=== PATIENT | female | born 1975 | race Caucasian/White ===

== ENCOUNTER → 2018-01-29 14:15 | Outpatient (CLI) | payer OTHER, SELFPAY ==
--- NOTE | 2018-01-29 14:17 | DI.US.S_ITS ---
PROCEDURE: US PELVIC COMPLETE INDICATIONS: PAIN, BLEEDING SINCE IUD INSERTION TECHNIQUE: Real-time scanning was performed of the pelvic organs, with image documentation. Additional endovaginal scanning was necessary due to incomplete visualization of the adnexal and endometrial structures by transabdominal scanning. COMPARISON: [facility], US, PELVIC COMPLETE, 10/11/2017, 10:23. FINDINGS: Transabdominal scanning: Limited scanning through the kidneys shows no hydronephrosis. No pathologic free abdominal or pelvic fluid. Endovaginal scanning: Uterus: Uterus is normal in size at 8.2 x 4.6 x 5.6 cm. The endometrium measures 5 mm in combined thickness. An intrauterine contraceptive device is appropriately positioned within the endometrial cavity. There is a 15 mm intramural fibroid identified along the anterior margin of the uterus to the right of midline. A 27 mm intradural fibroid is identified on the posterior aspect of the uterus to the left of midline. A 15 mm submucosal fibroid is identified along the mid aspect of the uterus, which may exert mass effect on the endometrium. Ovaries: The right ovary measures 2.8 x 1 point by 2.0 cm. Left ovary measures 3.1 x 2.1 cm. Both ovaries are normal in size without cystic or solid abnormality. IMPRESSION: 1. Small to moderate-sized uterine fibroids. 2. Intrauterine contraceptive device is appropriately positioned. 2. Unremarkable ovaries. Dictated by: Jean-Claude Briones M.D. on 01/29/2018 at 14:40 Approved by: Jean-Claude Briones M.D. on 01/29/2018 at 14:45
== END ==
PROVIDERS: PCP Family Medicine; Visit Provider Specialist
DX: D25.9 Leiomyoma of uterus, unspecified (principal); N92.1 Excessive and frequent menstruation with irregular cycle; Z30.431 Encounter for routine checking of intrauterine contraceptive device
CPT/HCPCS: 76830; 76856

== ENCOUNTER → 2018-03-17 12:28 | Outpatient (CLI) | payer OTHER, SELFPAY ==
[2018-03-17 12:47] LABS: Add Manual Diff / Slide Review NO; Basophils Percent Auto 0.6 % (0-2); Eosinophils Percent Auto 4.6 % (2-4); Hematocrit 39.3 % (36-46); Hemoglobin 13.4 g/dL (12.0-16.0); Mean Corpuscular Hemoglobin 30.7 PG (26-34); Mean Corpuscular Volume 90.1 fL (80-100); Monocytes Percent Auto 8.6 % (3-14); Neutrophils Absolute Auto 4700 /uL (3000-5900); Neutrophils Percent Auto 56.2 % (50-75); Platelet Count 340 X10^3/uL (150-400); Red Blood Cell Count 4.36 X10^6/uL (4.0-5.2); Red Cell Distribution Width 13.6 % (11.6-14.8); White Blood Cell Count 8.4 X10^3/uL (4.5-11.0)
== END ==
PROVIDERS: PCP Family Medicine; Visit Provider Specialist
DX: N92.0 Excessive and frequent menstruation with regular cycle (principal)
CPT/HCPCS: 36415; 85025

== ENCOUNTER 2018-03-24 11:43 | Day surgery (SDC) | payer OTHER, SELFPAY ==
[2018-03-17 13:43] VITALS: BMI 31.1
[2018-03-24] VITALS (14 sets, daily range): BP systolic 115–163; BP diastolic 71–115; PULSE 70–89; RESP 14–20; TEMP 36.3–36.9; O2SAT 93–100; BMI 29.0
--- NOTE | 2018-03-24 12:16 | SUR.PREOP ---
Reported pt's elevated BP to Dr. Thomason. He said he would come see the pt, no intervention at this time.
--- NOTE | 2018-03-24 12:39 | PM.PREOP ---
Pre-operative Note Interval Note Pre-op Check: History & Physical Reviewed by Physician and Exam Performed
[2018-03-24] MEDS: LACTATED RINGERS 1,000 ML 42 ML IV (13:00)
[2018-03-24] MEDS: CEFAZOLIN 2 GM/100 ML FROZ.PIGGY IV (13:28)
[2018-03-24] MEDS: BUPIVACAINE 0.5% W/ EPI (PF) 30 ML VIAL INJ (14:12)
--- NOTE | 2018-03-24 15:04 | PM.OP.1 ---
Operative Date/Time/Diagnoses Date of procedure: 03/24/18 Time of procedure: 15:05 Pre-op diagnosis: Menorrhagia with submucous fibroid Post-op diagnosis: same Procedure & Clinicians Procedure: Laparoscopic supracervical hysterectomy with bilateral salpingectomies Same procedure as scheduled: Yes Indications: Menorrhagia with submucous fibroid unrelieved by Mirena IUD and control pills. Surgeon: Anastasiya Clement Pi/Senior Research Associate: Meche Wright Anesthesia Type: General Operative Notes Findings: Normal tubes, ovaries, and fibroid uterus. Normal liver edge and bowel surface. No endometriosis or scar tissue. Closure Type: primary Specimen(s): other (Uterus above the level the bladder and fallopian tubes) Estimated Blood Loss (mL): 50 Blood products transfused: none Procedure in detail: Patient is brought to the operating room where she underwent general anesthesia and placed in low yellowfin stirrups. She was prepped and draped in the usual sterile fashion. A check list was reviewed with the staff in the room prior to beginning of the case. Patient had pulsatile stockings in place and functional. 2 g of Ancef were in prior to beginning of the case.. A Anglin catheter was placed. A single-tooth tenaculum was placed on the anterior lip of the cervix and the cervix dilated to a #6 Hegar dilator. The uterine manipulator was placed through the cervix into the uterus with the balloon inflated with 3 mL of air. The area of the umbilical incision and the 5 mm right and left lower quadrant incisions were injected with Marcaine. An incision was made with scalpel. The verries needle was placed into the abdomen and confirmed in the appropriate place with withdrawal on a syringe and then free flow of fluid down through the needle. The abdomen was insufflated with CO2. The needle was removed and a 5 mm trocar placed without difficulty. There did not appear to be any damage is placement of the trocar. The right and left lower quadrant incisions were made with the scalpel and the trochars placed without damage to internal structures. The PK forceps were used to cauterize the mesosalpinx followed by the round ligaments on both sides. The utero-ovarian ligaments were cauterized and cut. Sequential bites were taken down the broad ligaments. The uterine arteries were cauterized. An incision was made above the level bladder pushing the bladder away from the cervix. The ROGELIO loop was placed around the uterus and the uterus was amputated above the level of the bladder. Bleeding was controlled with the PK forceps. The PK forceps were used to cauterize in the endocervical canal. A supracervical incision was made and an 11 mm port placed. A 15 mm Endo Catch bag was placed in the abdomen. The uterus, tubes and ovaries were placed in the bag and brought up through the suprapubic port site. The Logan O was placed. The uterus was hand morselized. The abdomen was reinsufflated and adequate hemostasis was noted. The trochars were removed and the CO2 allowed escape from the abdomen. The fascia layer of the suprapubic site was repaired with 0 Polysorb suture. Skin was closed with 4-0 Monocryl suture at the suprapubic site and the other 3 sites. The patient went to recovery room in good condition. Counts of instruments and sponges were correct. Complications: none Condition: stable Disposition: observation Plan for aftercare: Patient will be admitted as outpatient with bed due to preoperative hypertension.
[2018-03-24] MEDS: HYDROMORPHONE 1 MG INJ 0.5 MG IV (15:10)
[2018-03-24] MEDS: LACTATED RINGERS 1,000 ML 100 ML IV (16:39)
[2018-03-24] MEDS: OXYCODONE/ACETAMINOPHEN 5/325 TABLET 2 TAB PO ×2 (16:43→20:40)
[2018-03-24] MEDS: hydroCHLOROthiazide 25 MG TABLET PO (17:39)
[2018-03-24] MEDS: LOSARTAN 50 MG TABLET PO (20:39)
[2018-03-24] MEDS: KETOROLAC 30 MG/ML VIAL IV (21:48)
--- NOTE | 2018-03-24 22:21 | PC.ADMIT ---
446 [facility] Admission Note: The patient,Beatriz Mayfield,42 y/o, was given written information regarding hospital policies, unit procedures and contact persons. Patient's smoking status: Never smoker. Vital Signs - 8 hr 03/24/18 14:50 03/24/18 14:55 03/24/18 15:00 Temperature 98 F 98 F 98 F Pulse Rate 77 83 88 Respiratory Rate 18 20 18 Blood Pressure 120/86 H 115/90 H 122/91 H Pulse Oximetry 93 96 95 03/24/18 15:15 03/24/18 15:29 03/24/18 15:45 Temperature 98 F 97.6 F 98.0 F Pulse Rate 75 77 70 Respiratory Rate 14 18 16 Blood Pressure 118/85 H 126/86 H 117/71 Pulse Oximetry 95 96 100 03/24/18 16:15 03/24/18 16:45 03/24/18 17:45 Temperature 98.4 F 98.4 F 98.2 F Pulse Rate 70 70 85 Respiratory Rate 16 16 16 Blood Pressure 117/89 H 126/90 H 130/93 H Pulse Oximetry 97 97 97 03/24/18 18:45 03/24/18 20:39 Temperature 98.1 F Pulse Rate 84 84 Respiratory Rate 16 Blood Pressure 137/86 H 137/86 H Pulse Oximetry 96 Pt arrived to Acute care floor approx at 1545. 4 Lap sites with bandaids CDI, ice pack applied to abdomen. Pt A&Ox3, calm and cooperative with care. 100% RA, denies SOB, LS clear. Pt denies nausea and numbness and tingling. Up OOB SBA. Urine clear yellow, scant bleeding present on jessica-pad. Call light in reach. Pt calling appropriately and making needs known to staff.
[2018-03-25] MEDS: OXYCODONE/ACETAMINOPHEN 5/325 TABLET 2 TAB PO ×2 (00:57→07:36)
[2018-03-25] MEDS: KETOROLAC 30 MG/ML VIAL IV (04:03)
[2018-03-25 04:14] VITALS: BP 122/86; PULSE 65; RESP 16; TEMP 36.6; O2SAT 96
[2018-03-25 06:03] LABS: Add Manual Diff / Slide Review NO; Basophils Percent Auto 0.1 % (0-2); Hematocrit 37.6 % (36-46); Hemoglobin 12.9 g/dL (12.0-16.0); Lymphocytes Percent Auto 11.1 % (25-40); Mean Corpuscular HGB Conc 34.4 % (30-36); Mean Corpuscular Hemoglobin 30.4 PG (26-34); Mean Corpuscular Volume 88.6 fL (80-100); Monocytes Percent Auto 6.5 % (3-14); Neutrophils Absolute Auto 8700 /uL (3000-5900); Neutrophils Percent Auto 82.3 % (50-75); Platelet Count 318 X10^3/uL (150-400); Red Blood Cell Count 4.25 X10^6/uL (4.0-5.2); Red Cell Distribution Width 13.1 % (11.6-14.8); White Blood Cell Count 10.6 X10^3/uL (4.5-11.0)
--- NOTE | 2018-03-25 07:13 | PM.DS.1 ---
History of Present Illness Date Patient Seen: 03/25/18 Time Patient Seen: 07:13 Chief complaint: *OPB* 26225 Narrative: Patient underwent a laparoscopic supracervical hysterectomy with bilateral salpingectomies on 03/24/2018. Patient's blood pressure preoperative was elevated despite blood pressure medication so we monitor the patient in the hospital postoperative for her blood pressure. Her blood pressures remained normotensive throughout her hospital stay. She had no problems urinating and ambulating. She was tolerating regular diet. Pain was under control. Discharge Providers Primary care physician: Alonso Garsia MD Discharge provider: Anastasiya Clement MD Summary Discharge Diagnosis: Status post laparoscopic supracervical hysterectomy for menorrhagia Hospital Course: Patient remained normotensive who postoperatively and did well. Exam Vital Signs (past 8 hours): - 03/24/18 23:20 03/25/18 04:14 Temperature 97.6 F 97.8 F Pulse Rate 84 65 Respiratory Rate 16 16 Blood Pressure 123/86 H 122/86 H Pulse Oximetry 96 96 Oxygen Delivery Method Room Air Narrative Exam Narrative: Patient's abdomen is soft, nontender. Dressings are dry. Extremities without edema, nontender. Minimal vaginal bleeding Objective Labs Result Diagrams: 03/25/18 05:46 Labs: Laboratory Results - last 24 hr 03/25/18 05:46 WBC 10.6 RBC 4.25 Hgb 12.9 Hct 37.6 MCV 88.6 MCH 30.4 MCHC 34.4 RDW 13.1 Plt Count 318 Neut % (Auto) 82.3 H Lymph % (Auto) 11.1 L Guthrie % (Auto) 6.5 Eos % (Auto) 0.0 L Baso % (Auto) 0.1 Neut # (Auto) 8700 H Discharge Plan Discharge Plan Patient Disposition: Home, Self-Care Discharge Med Rec/Prescriptions Prescriptions: New hydrochlorothiazide 25 mg Tablet 25 mg PO DAILY Qty: 30 RF: 0 Continue losartan 50 mg 50 mg PO BID RF: 0 oxycodone-acetaminophen [Percocet] 5-325 mg tablet 2 tab PO Q4H PRN (Reason: pain) Qty: 40 RF: 0 ibuprofen 600 mg Tablet 600 mg PO PRN PRN (Reason: Pain (Scale Score 1-3)) RF: 0 Follow up/Referrals: Alonso Garsia MD [Primary Care Provider] - 2 Weeks (Blood pressure management) Anastasiya Clement MD [Physician] - 1 Week (Already scheduled) Discharge Orders: Discharge (Order); Ordered 03/25/18 Ordered By: Anastasiya Clement Provider Discharge Instructions Diet: Regular Wound Care Report to your healthcare provider any signs of infection, such as:: chills, fever, increased pain and unusual drainage Dressing: May remove bandages today, okay to get Steri-Strips wet Visit Report/Discharge Packet Stand Alone Forms: Surgery Discharge Discharge Data Primary Care Provider: Alonso Garsia Attending Provider: Anastasiya Clement
[2018-03-25 07:48] VITALS: BP 135/98; PULSE 59; RESP 16; TEMP 36.6; O2SAT 99
[2018-03-25] MEDS: hydroCHLOROthiazide 25 MG TABLET PO (08:06)
[2018-03-25] MEDS: LOSARTAN 50 MG TABLET PO (08:06)
--- NOTE | 2018-03-25 08:44 | CM.DANOTE ---
Discharge Planning/Care Management CM Discharge Assessment Start: 03/25/18 08:38 Freq: Status: Active Protocol: Document 03/25/18 08:39 RL (Rec: 03/25/18 08:44 RL [id number]) Discharge Planning Assessment Assigned Tug Hand Marie Stark History Provided By Patient Has Patient been admitted in last 30 No days? Is this patient on Medicare? No Is the admit diagnosis the same? No Prior Living Arrangements Apartment/Condo Household Members family Type of transporation used prior to Drives own vehicle admit Comment mother to pick her up today Independent with ADL's Yes Is patient alert and oriented? Yes Caregiver for Another No Discharge Plan Home Transportation Arrangement mother, private car Additional Comment lives with brother and patient 's son who will be assisting her in the home. Plan to d/c home this morning, no services Review Status Complete DCP Assessment: 03/25/18 Case reviewed, EMR reviewed and met with patient who is alert and oriented, looking forward to d/c to home this morning. Pt is a 42yo female admitted as OPB for lap hysterectomy and bilat salping, under the care of Dr. Clement. PCP: Dr. Garsia Primary payor is: [employer] Other health care agencies used: None Met with patient. Introduced self as DCP, explained role and goals of DCP and as pt advocate. Pt verbalized understanding. DCP wrote name and extension number on patient whiteboard. Independent at baseline for all ADLs prior to this hospitalization. No needs at discharge. Plan: Home with family care. Mother will be here to pick her up about 11am. Marie Gaston RN
== END 2018-03-25 10:29 | disposition home or self-care (01) ==
LOC: OR 11:46 → AC 15:52
PROVIDERS: PCP Family Medicine; Visit Provider Specialist
PROC: 0UT94ZL Resection of Uterus, Supracervical, Percutaneous Endoscopic Approach (ICD-10-PCS; CPT 58542; principal; 2018-03-24 13:00)
DX: D25.0 Submucous leiomyoma of uterus (principal)
CPT/HCPCS: 58542; 36415; 85025; J0690; J1100; J1170; J1885; J2250; J2405; J2704; J3010

== ENCOUNTER → 2020-06-03 08:13 | Outpatient (CLI) | payer OTHER, SELFPAY ==
[2018-03-24 17:27] VITALS: BMI 29.0
[2020-06-05 15:27] LABS: COVID19 Sendout Not Detected (Not Detect)
== END ==
PROVIDERS: PCP Family Medicine; Visit Provider Physician Assistant
DX: Z11.59 Encounter for screening for other viral diseases (principal)
CPT/HCPCS: 87635

== ENCOUNTER 2020-06-06 13:59 | Day surgery (SDC) | payer OTHER, SELFPAY ==
[2018-03-24 17:27] VITALS: BMI 29.0
--- NOTE | 2020-06-06 | PATH_ITS ---
[facility] Accession Number: [id number] . 01 Material submitted: . PART A: cecum - CECUM BIOPSY PART B: colon - ASCENDING BIOPSY PART C: colon - TRANSVERSE BIOPSY PART D: colon - DESCENDING BIOPSY PART E: sigmoid colon - SIGMOID BIOPSY PART F: rectum - RECTUM . 01 Clinical history: . SDC . 02 Diagnosis: A-C. Cecum, Ascending, Transverse Colon, Biopsies: Mildly active colitis with minimally increased lymphocytes, plasma cells and eosinophils in the lamina propria. Please see comment. Negative for granulomas, dysplasia, and malignancy. . D. Descending Colon, Biopsy: Colonic mucosa with no significant diagnostic abnormality. Negative for active inflammation, granulomas, dysplasia, and malignancy. . E. Sigmoid Colon, Biopsy: Minimally active colitis with minimally increased lymphocytes, plasma cells and eosinophils in the lamina propria. Please see comment. . F. Rectum, Biopsy: Mildly active colitis with mild distortion of the crypt architecture. Please see comment. [facility] 06/09/2020 1635 Local . 02 Comment: There is patchy mild neutrophilic cryptitis in most of the colon biopsies. There is minimally increased lymphocytes, plasma cells and eosinophils in all of the pieces, which is slightly more prominent in the rectal biopsies, suggestive of chronic inflammation. There is rare branched crypt architecture in the sigmoid colon and rectum. No obvious viral cytopathic effects or parasitic organisms are identified. The morphologic appearance raises the consideration of idiopathic inflammatory bowel disease in the appropriate clinical setting, if infection and medication related mucosal injury are excluded. . 02 Electronically signed: . Latanya Paula MD, Pathologist NPI- [id number] . 01 Gross description: . Part A: CECUM BIOPSY: Received in formalin are 2 fragment(s) of alberto, soft tissue measuring 0.1 x 0.1 x 0.1 cm to 0.3 x 0.2 x 0.2 cm submitted entirely in 1 cassette(s) Part B: ASCENDING BIOPSY: Received in formalin are 2 fragment(s) of alberto, soft tissue measuring 0.1 x 0.1 x 0.1 cm to 0.2 x 0.2 x 0.2 cm submitted entirely in 1 cassette(s) Part C: TRANSVERSE BIOPSY: Received in formalin are 2 fragment(s) of alberto, soft tissue measuring 0.1 x 0.1 x 0.1 cm to 0.3 x 0.1 x 0.1 cm submitted entirely in 1 cassette(s) Part D: DESCENDING BIOPSY: Received in formalin is 1 fragment(s) of alberto, soft tissue measuring 0.2 x 0.2 x 0.2 cm submitted entirely in 1 cassette(s) Part E: SIGMOID BIOPSY: Received in formalin are 2 fragment(s) of alberto, soft tissue measuring 0.2 x 0.2 x 0.1 cm to 0.3 x 0.2 x 0.2 cm submitted entirely in 1 cassette(s) Part F: RECTUM: Received in formalin are 2 fragment(s) of alberto, soft tissue measuring 0.1 x 0.1 x 0.1 cm to 0.2 x 0.2 x 0.2 cm submitted entirely in 1 cassette(s) /DEREJE 06/07/2020 2355 Local . 02 Pathologist provided ICD-10: R19.7 . 02 CPT . 953956, 969088, 199320, 599536, 528869, 454032 Performed at: 01 [facility] [address], [place], [place] [id number] MD Shravan Miller MD Phone: [phone] Performed at: 02 [facility] [address] [place], [place] [id number] MD Latanya Paula MD Phone: [phone]
--- NOTE | 2020-06-06 12:17 | PM.HP.1 ---
History of Present Illness History of Present Illness Date Patient Seen: 06/06/20 Chief complaint: ORC Narrative: 44 Years Old Female seen today for consideration of a diagnostic colonoscopy. Last visit for same complaint on 03/22/2020, this is her third visit for diarrhea. Was in [place] in late October, approximately 6 months prior to presentation, diarrhea started then. Food was self-catered. When she returned home, the diarrhea resolved but then restarted 2 weeks later and has not stopped. Associated bright red blood and mucus. Work-up to date including CBC, BMP, stool culture, and O&P significant only for low potassium, likely due to the diarrhea. She has started potassium supplement and is taking probiotics. She has had no reduction in symptoms. Mother has ulcerative colitis. There's been no family history of colon cancer or colon polyps. Overall health issues have been stable, including no major cardiac events for at least 6 weeks. PCP: Dr. Roberts Current Medications: 1) Potassium Chloride Er 10 Meq Oral Capsule Extended Release (Potassium Chloride) .... 10 MEQ by mouth qd 2) Colcrys 0.6 Mg Oral Tablet (Colchicine) .... Take 2 tablets at onset of gout attack, then one tablet one hour later. Maximum 3 tablets per acute attack. 3) Hydrochlorothiazide 25 Mg Oral Tablet (Hydrochlorothiazide) .... Take 1 tablet by mouth once a day, for blood pressure control. 4) Losartan Potassium 100 Mg Oral Tablet (Losartan Potassium) .... Take 1 tablet by mouth once a day, for blood pressure control. 5) Ibuprofen 200 Mg Oral Tablet (Ibuprofen) .... Take 2 tablets with food every 4-6 hours, as needed for pain. Maximum 16 tablets in 24 hours. Allergies: No Known Drug Allergies Past Medical History: Diarrhea HYPERLIPIDEMIA, MIXED HYPERTENSION HYPOGLYCEMIA GOUT, ACUTE VITAMIN D DEFICIENCY ALCOHOL ABUSE Past Surgical History: Hysterectomy Family History: Reviewed history from 03/03/2020 and no changes required: Father: Mother: HTN, Ulcerative colitis, Chronic Inflammatory Demyelinating Polyneuropathy Aunt-(M) HTN Grandmother-(M) HTN Social History: Works at the [employer]. 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 Reports her alcohol consumption has decreased, now drinking 2-3 beers per week. Former smoker. Patient History Medical History (Updated 03/24/18 @ 17:26 by Marylou Vazquez RN) Gout (Acute) Surgical History (Updated 03/24/18 @ 17:26 by Marylou Vazquez RN) History of dilatation and curettage (Acute) [place] teeth removed (Acute) Family & Social History Social History: household members family Tobacco & Substance use: Smoking Status Never smoker alcohol intake current alcohol intake frequency a few times a week Substance Use Type does not use Meds Home Medications and Allergies Home Medications Medication Instructions Recorded Confirmed Type ibuprofen 600 mg PO PRN PRN 03/24/18 06/06/20 History hydrochlorothiazide 25 mg PO DAILY #30 tab 03/25/18 06/06/20 Rx losartan 100 mg PO DAILY 06/06/20 06/06/20 History Allergies Allergy/AdvReac Type Severity Reaction Status Date / Time No Known Drug Allergies Allergy Verified 06/06/20 14:16 Review of Systems Review of Systems ROS: Yes All systems reviewed with the patient and are negative except as otherwise documented Exam Narrative Exam Narrative: GENERAL: Alert and oriented, appearing stated age and in no acute distress. HEENT: Head normocephalic/atraumatic. Pupils equal, round, and reactive to light and accomodation. Extraocular muscles intact. Tympanic membranes clear. Nasal mucosa moist, septum midline. Oral mucosa moist, no lesions. Neck soft and supple, no lymphadenopathy. LUNGS: Clear to ausculation bilaterally, no wheezes, rhonchi or rales. CV: Normal S1 and S2 with regular rate and rhythm, no audible murmurs, rubs or gallops. ABDOMEN: Soft, non-tender, non-distended, no organomegaly. Positive bowel sounds. EXTREMITIES: No clubbing, cyanosis, or edema. NEURO: Cranial nerves II through XII grossly intact, no focal deficits. PSYCH: Alert and oriented x 3. SKIN: No concerning lesions. Assessment & Plan Assessment & Plan narrative: 1. Diarrhea 2. Family history of ulcer colitis 3. Screening for colon cancer Plan for colonoscopy. The nature and character of the procedure as well as anticipated results were discussed. The possibility of not completing the procedure was also discussed. Possible complications including aspiration pneumonia, bleeding, perforation and reaction to medications either for sedation or preparation and missed lesions were discussed. Questions were answered and proceeding to the colonoscopy was elected. Informed consent signed. I sincerely appreciate the referral allowing me to participate in this patient's care. Please contact me with any questions or concerns.
--- NOTE | 2020-06-06 12:19 | PM.OP.ENDO ---
Operative Date/Time/Diagnoses Date of procedure: 06/06/20 Procedure Notes SCOAP/Timeout: 3:06 p.m. Procedure in detail: ENDOSCOPIST: Bushra Roberts MD Sedation RN: Steven Figueroa RN Sedation start time: 3:07 p.m. Sedation end time: 3:36 p.m. PROCEDURE: Colonoscopy with biopsies INDICATIONS: 1. Diarrhea 2. Family history of ulcerative colitis 3. Screening for colon cancer MEDICATION: Levsin 0.125 mg sublingual, incremental doses of Versed and fentanyl until appropriate level sedation achieved. ASA CLASS: 2 CECAL WITHDRAWAL TIME: 17 minutes COMPLICATIONS: None. EXTENT OF PROCEDURE: Cecum. QUALITY OF PREP: Good with portions of liquid stool. PROCEDURE: Prior to insertion of the colonoscope, a digital rectal examination was accomplished with circumferential palpation of the distal rectal mucosa without significant findings being noted. The high-definition pediatric colonoscope was passed into the rectum in the usual fashion and advanced over to the cecum without difficulty. The ileocecal valve, appendiceal stoma, and medial wall all could be inspected and extensive colitis was seen with overlying mucus. Targeted biopsy taken x2. ASCENDING COLON: As the colonoscope was withdrawn, care was taken to expose and inspect the haustral folds and extensive colitis was noted with overlying mucus. No polyps or diverticulosis. Targeted biopsy taken x2. HEPATIC FLEXURE: Severe colitis with overlying mucus. No polyps or diverticulosis. TRANSVERSE COLON: Moderate to severe colitis with overlying mucus. No polyps or diverticulosis. Targeted biopsy taken x2. DESCENDING COLON: Patchy areas of colitis, mild to moderate. No polyps or diverticulosis. Targeted biopsy taken x2. SIGMOID COLON: Patchy areas of colitis, mild to moderate. No polyps or diverticulosis. Targeted biopsy taken x2. RECTUM: Inflamed. J maneuver was produced. There was proctitis and small, acute ulcers. Targeted biopsy taken x2. The J maneuver was broken. The remainder of the rectum was inspected and there was no external hemorrhoid disease. The scope was withdrawn. IMPRESSION: 1. Pancolonic colitis, right greater than left 2. Proctitis PLAN: 1. Follow-up in clinic status post pathology results. The possibility of a missed lesion including a malignancy has been discussed with the patient previously. Potential alarm symptoms have been discussed and should be reported immediately.
[2020-06-06 14:17] VITALS: BMI 29.6
[2020-06-06 14:22] VITALS: BP 116/86; PULSE 105; RESP 12; TEMP 36.4; O2SAT 97
[2020-06-06] MEDS: LACTATED RINGERS 1,000 ML 200 ML IV (14:33)
[2020-06-06] MEDS: HYOSCYAMINE 0.125 MG TABLET PO (14:33)
[2020-06-06] MEDS: fentaNYL 250 MCG/5 ML INJ IV (15:07)
[2020-06-06] MEDS: MIDAZOLAM 5 MG/5 ML VIAL IV (15:07)
[2020-06-06 15:42] VITALS: BP 115/76; PULSE 90; RESP 14; TEMP 37.1; O2SAT 99
[2020-06-06 15:47] VITALS: BP 108/81; PULSE 97; RESP 13; O2SAT 98
[2020-06-06 15:52] VITALS: BP 105/76; PULSE 93; RESP 12; TEMP 36.2; O2SAT 97
--- NOTE | 2020-06-06 15:56 | SUR.PHASEII ---
Short run of sinus tach, up to 117, and then HR returned to 80-90s. Dr. Castillo notified. No new orders.
== END 2020-06-06 16:10 | disposition home or self-care (01) ==
PROVIDERS: PCP Student in an Organized Health Care Education/Training Program; Referring Provider Student in an Organized Health Care Education/Training Program; Visit Provider Student in an Organized Health Care Education/Training Program
PROC: 0DJD8ZZ Inspection of Lower Intestinal Tract, Via Natural or Artificial Opening Endoscopic (ICD-10-PCS; CPT 45378; principal; 2020-06-06 15:15)
DX: K52.9 Noninfective gastroenteritis and colitis, unspecified (principal); I10 Essential (primary) hypertension; E78.5 Hyperlipidemia, unspecified; K62.89 Other specified diseases of anus and rectum
CPT/HCPCS: 45380; J2250; J3010

== ENCOUNTER → 2020-07-06 11:31 | Outpatient (CLI) | payer OTHER, SELFPAY ==
[2018-03-24 17:27] VITALS: BMI 29.0
[2020-07-07 12:25] LABS: COVID19 Sendout Not Detected (Not Detect)
== END ==
PROVIDERS: PCP Student in an Organized Health Care Education/Training Program; Visit Provider Nurse Practitioner
DX: Z11.59 Encounter for screening for other viral diseases (principal); R07.9 Chest pain, unspecified
CPT/HCPCS: 87635

== ENCOUNTER → 2020-07-06 12:31 | Outpatient (CLI) | payer OTHER, SELFPAY ==
[2018-03-24 17:27] VITALS: BMI 29.0
--- NOTE | 2020-07-06 12:33 | DI.RAD.S_ITS ---
PROCEDURE: XR CHEST 2V INDICATIONS: Chest pain TECHNIQUE: 2 views of the chest were acquired. COMPARISON: None. FINDINGS: Surgical changes and devices: None. Lungs and pleura: Lungs are clear. No pleural effusions or pneumothorax. Mediastinum: Mediastinal contours are normal. Heart size is normal. Bones and chest wall: No suspicious bony abnormalities. Soft tissues appear unremarkable. IMPRESSION: Normal for age, source of current chest pain symptoms is not seen. Dictated by: Abelino Mims M.D. on 07/06/2020 at 13:14 Approved by: Abelino Mims M.D. on 07/06/2020 at 13:41
[2020-07-06 12:54] LABS: Add Manual Diff / Slide Review NO; Basophils Absolute Auto 0 /uL (0-100); Basophils Percent Auto 0.1 % (0-2); Eosinophils Absolute Auto 100 /uL (0-450); Eosinophils Percent Auto 0.9 % (2-4); Hemoglobin 14.5 g/dL (12.0-16.0); Lymphocytes Absolute Auto 2200 /uL (1100-4500); Lymphocytes Percent Auto 30.9 % (25-40); Mean Corpuscular HGB Conc 33.8 % (30-36); Mean Corpuscular Volume 88.9 fL (80-100); Monocytes Absolute Auto 700 /uL (0-900); Monocytes Percent Auto 10.6 % (3-14); Neutrophils Absolute Auto 4100 /uL (1500-7000); Neutrophils Percent Auto 57.5 % (50-75); Platelet Count 298 X10^3/uL (150-400); Red Blood Cell Count 4.84 X10^6/uL (4.0-5.2); Red Cell Distribution Width 14.6 % (11.6-14.8)
[2020-07-06 13:05] LABS: Alanine Aminotransferase 22 IU/L (<35); Albumin 4.5 g/dL (3.5-5.0); Albumin Globulin Ratio 1.2 (1.0-2.8); Alkaline Phosphatase 59 U/L (38-126); Aspartate Aminotransferase 21 IU/L (14-36); BUN Creatinine Ratio 12.7 (6-22); Bilirubin Total 0.7 mg/dL (0.2-1.3); Blood Urea Nitrogen 10 mg/dL (7-17); Calcium 9.8 mg/dL (8.4-10.2); Carbon Dioxide 31 mmol/L (22-32); Chloride 97 mmol/L (98-107); Estimated Glomerular Filt Rate > 60.0 mL/min (>60); Globulin 3.7 g/dL (1.7-4.1); Glucose 102 mg/dL (70-100); HEMOLYSIS < 15 (0-50); Potassium 2.8 mmol/L (3.4-5.1); Sodium 138 mmol/L (137-145); Total Protein 8.2 g/dL (6.3-8.2)
[2020-07-06 13:16] LABS: Troponin I 0.075 ng/mL (0.01-0.034)
== END ==
PROVIDERS: PCP Student in an Organized Health Care Education/Training Program; Referring Provider Nurse Practitioner; Visit Provider Nurse Practitioner
DX: Z11.59 Encounter for screening for other viral diseases (principal); R07.9 Chest pain, unspecified
CPT/HCPCS: 36415; 71046; 80053; 84484; 85025; 87635

== ENCOUNTER 2020-07-06 15:20 | Inpatient (IN) | payer OTHER, SELFPAY ==
[2018-03-24 17:27] VITALS: BMI 29.0
[2020-07-06] VITALS (21 sets, daily range): BP systolic 81–103; BP diastolic 56–69; PULSE 94–105; RESP 12–22; TEMP 36.6–36.8; O2SAT 95–100; BMI 27.4
[2020-07-06 15:55] LABS: Add Manual Diff / Slide Review NO; Basophils Absolute Auto 0 /uL (0-100); Basophils Percent Auto 0.1 % (0-2); Eosinophils Absolute Auto 100 /uL (0-450); Eosinophils Percent Auto 1.1 % (2-4); Hematocrit 37.1 % (36-46); Hemoglobin 12.8 g/dL (12.0-16.0); Lymphocytes Absolute Auto 1500 /uL (1100-4500); Lymphocytes Percent Auto 29.4 % (25-40); Mean Corpuscular HGB Conc 34.4 % (30-36); Mean Corpuscular Volume 87.2 fL (80-100); Monocytes Absolute Auto 600 /uL (0-900); Monocytes Percent Auto 10.7 % (3-14); Neutrophils Absolute Auto 3000 /uL (1500-7000); Neutrophils Percent Auto 58.7 % (50-75); Platelet Count 272 X10^3/uL (150-400); Red Blood Cell Count 4.26 X10^6/uL (4.0-5.2); Red Cell Distribution Width 14.7 % (11.6-14.8); White Blood Cell Count 5.2 X10^3/uL (4.5-11.0)
[2020-07-06 15:59] LABS: INR 1.2 (0.9-1.3); Prothrombin Time 13.8 SECONDS (10.1-12.7)
[2020-07-06 16:01] LABS: PTT Partial Thromboplastin Tim 27 SECONDS (26.4-36.2)
[2020-07-06 16:04] LABS: Alanine Aminotransferase 18 IU/L (<35); Albumin 3.8 g/dL (3.5-5.0); Albumin Globulin Ratio 1.2 (1.0-2.8); Alkaline Phosphatase 49 U/L (38-126); Aspartate Aminotransferase 19 IU/L (14-36); Bilirubin Total 0.7 mg/dL (0.2-1.3); Blood Urea Nitrogen 12 mg/dL (7-17); Calcium 8.9 mg/dL (8.4-10.2); Carbon Dioxide 29 mmol/L (22-32); Chloride 97 mmol/L (98-107); Creatine Kinase 43 U/L (30-135); Estimated Glomerular Filt Rate > 60.0 mL/min (>60); Globulin 3.1 g/dL (1.7-4.1); Glucose 117 mg/dL (70-100); HEMOLYSIS < 15 (0-50); Lipase 110 U/L (23-300); Sodium 131 mmol/L (137-145); Total Protein 6.9 g/dL (6.3-8.2)
[2020-07-06] MEDS: ASPIRIN 81 MG CHEW TAB 324 MG PO (16:05)
[2020-07-06] MEDS: SODIUM CHLORIDE 0.9% 1,000 ML 1000 ML IV (16:05)
[2020-07-06 16:16] LABS: NT-proBNP (BNP-Adult 18+) 2530 pg/mL (<125); Troponin I 0.072 ng/mL (0.01-0.034)
[2020-07-06 16:20] LABS: Potassium 2.7 mmol/L (3.4-5.1)
[2020-07-06 16:30] LABS: Procalcitonin 0.14 ng/mL (<0.5)
[2020-07-06] MEDS: POTASSIUM CHLORIDE 20 MEQ/15 ML UDC 40 MEQ PO (16:31)
[2020-07-06 16:32] LABS: Pregnancy Test Serum,Qual Negative (Negative)
[2020-07-06 16:33] LABS: COVID19 -Nasal RAPID Negative (Negative)
[2020-07-06] MEDS: POTASSIUM CHLORIDE 20 MEQ in SODIUM CHLORIDE 0.9% 250 ML 130 ML IV (16:36)
--- NOTE | 2020-07-06 16:50 | ED.RECABL ---
HPI - Recheck/Abnormal Lab/Rx General Chief Complaint: Recheck/Abnormal Lab/Rx Stated Complaint: abnormal labs Time Seen by Provider: 07/06/20 15:27 Source: patient Mode of arrival: Ambulatory Limitations: no limitations History of Present Illness HPI narrative: Patient is a 44-year-old female who was sent to the emergency department from the walk-in clinic for evaluation of a low potassium and a elevated troponin. Patient has had issues with chronic diarrhea and bloody diarrhea for many months now. She has been followed by primary doctor. Had a colonoscopy several weeks ago and just finished a course of prednisone and mesalamine for the symptoms. All of the symptoms started after a trip to [place]. She is not currently on any antibiotics. She has had a history of low potassium in the past which has been attributed to her diarrhea. She went to the walk-in clinic today because over the past couple days she had bilateral upper neck pain and also bilateral lower chest pain. She states the chest pain was worse laying on her left side and better when she was lying down. Was also reports that drinking water improved her chest discomfort. Was not worse with palpation. The neck discomfort at so bad last evening that she decided she needed to come in today. She is also describing a rash across her upper back and down her arms. No coughing. Related Data Home Medications Medication Instructions Recorded Confirmed ibuprofen 600 mg PO PRN PRN 03/24/18 07/06/20 losartan 100 mg PO DAILY 06/06/20 07/06/20 Previous Rx's Medication Instructions Recorded hydrochlorothiazide 25 mg PO DAILY #30 tab 03/25/18 cyclobenzaprine 10 mg tablet 10 mg PO TID PRN #14 tab 07/06/20 Allergies Allergy/AdvReac Type Severity Reaction Status Date / Time No Known Drug Allergies Allergy Verified 07/06/20 11:22 Review of Systems Constitutional Constitutional: Denies headache(s) Eyes Eyes: Denies change in vision ENT Ears, Nose, Mouth, and Throat: Denies vertigo, Denies dizziness, Denies headache(s), Reports neck pain, Reports sore throat, Denies throat swelling and Denies tongue swelling Cardiovascular Cardiovascular: Reports chest pain, Denies syncope, Denies rapid heart rate, Denies edema, Denies irregular heart rhythm and Reports dyspnea Respiratory Respiratory: Denies cough and Reports dyspnea Gastrointestinal Gastrointestinal: Reports abdominal pain, Reports hematochezia, Reports diarrhea, Denies nausea and Denies vomiting Genitourinary Genitourinary: Denies dysuria Genitourinary: Denies dysuria Musculoskeletal Musculoskeletal: Denies myalgias and Reports neck pain Integumentary/Breasts Skin/Breast: Denies lesions and Denies rash Neurologic Neurologic: Denies behavioral changes, Denies vertigo, Denies dizziness, Denies syncope and Denies headache(s) Psychiatric Psychiatric: Denies behavioral changes Hematologic/Lymphatic Hematologic/Lymphatic: Denies easy bleeding and Denies easy bruising Allergic/Immunologic Allergic/Immunologic: Reports urticaria, Denies throat swelling and Denies tongue swelling Patient History Medical History (Updated 07/06/20 @ 17:55 by Frank Mcnair DO) Gout (Acute) Hypertension (Acute) Surgical History History of dilatation and curettage (Acute) [place] teeth removed (Acute) Social History household members: family Smoking Status: Never smoker alcohol intake: current Smoking Status: Never smoker alcohol intake frequency: a few times a month Substance Use Type: does not use Exam Initial Vital Signs Initial Vital Signs: Vital Signs Temperature 98.3 F 07/06/20 15:30 Pulse Rate 105 H 07/06/20 15:30 Respiratory Rate 14 07/06/20 15:30 Blood Pressure 89/58 L 07/06/20 15:30 Pulse Oximetry 96 07/06/20 15:30 Const General: cooperative, comfortable and well developed Limitations: mental status not altered [facility] Head: normal to inspection and normocephalic Nose: external nose normal Face and sinus: normal facial exam Eyes General: appearance normal, both eyes and all related structures Chest Chest: No crepitus and No tenderness Resp Effort & Inspection: normal respiratory effort Auscultation: clear to auscultation bilaterally Cardio Rate: tachycardic Rhythm: regular rhythm Pulses: radial pulses present GI Inspection: non-distended Palpation: soft Skin General: No erythema Other: Urticaria located mostly bilateral upper extremities Neuro General: patient alert, patient awake and patient oriented x3 Cognition: normal cognition Speech: speech normal Sensory Exam: no sensory deficits noted Extrem General: normal to inspection, capillary refill normal and No edema Psych Appearance: grossly normal and well kempt Scores GCS Shey coma scale eye opening: Spontaneous Shey coma scale verbal response: Orientated Shey coma scale motor response: Obey commands [place] coma scale total score: 15 Course Orders Ordered: ED Orders 07/06/20 15:30 COVID19 -ED/INPAT/OR/L&D Stat 07/06/20 15:45 C-Reactive Protein Quant Stat Complete Blood Count AUTO DIFF Stat Comprehensive Metabolic Panel Stat Erythrocyte Sedimentation Rate Stat Lipase Stat NT-proBNP (BNP-Adult 18+) Stat Partial Thromboplastin Time Stat Test Serum,Qual Stat Procalcitonin Stat Prothrombin Time INR Stat Troponin & CK Cardiac Panel Stat 07/06/20 16:01 EKG-12 Lead Stat 07/06/20 16:49 CT angio chest PE protocol Stat 07/06/20 17:05 Urine Drug Screen, Rapid Stat Potassium Chloride 20 meq/ (Sodium Chloride) 260 mls @ 130 mls/hr IV NOW ONE Stop: 07/06/20 18:20 Last Admin: 07/06/20 16:36 Dose: 130 mls/hr Documented by: BRYAN Cosigned by: HAILEY Sodium Chloride (Normal Saline 0.9%) 1,000 mls @ 125 mls/hr IV BOLUS ONE Stop: 07/07/20 01:22 Ondansetron HCl (Zofran) 4 mg IV Q4HR PRN PRN Reason: Nausea And Vomiting Discontinued Medications Aspirin (Aspirin Chew) 324 mg PO NOW ONE Stop: 07/06/20 15:31 Last Admin: 07/06/20 16:05 Dose: 324 mg Documented by: BRYAN Sodium Chloride (Normal Saline 0.9%) 1,000 mls @ 1,000 mls/hr IV BOLUS ONE Stop: 07/06/20 16:51 Last Admin: 07/06/20 16:05 Dose: 1,000 mls/hr Documented by: BRYAN Methylprednisolone (Solu-Medrol 125 Mg Vial) 125 mg IV NOW ONE Stop: 07/06/20 17:56 Potassium Chloride (Potassium Chloride) 40 meq PO NOW ONE Stop: 07/06/20 16:21 Last Admin: 07/06/20 16:31 Dose: 40 meq Documented by: BRYAN Vital Signs Vital signs: Vital Signs - 8 hr 07/06/20 15:30 07/06/20 15:38 07/06/20 15:49 Temperature 98.3 F Pulse Rate 105 H 105 H 102 H Respiratory Rate 14 14 12 Blood Pressure 89/58 L 89/58 L 87/60 L Pulse Oximetry 96 96 95 07/06/20 16:00 07/06/20 16:30 07/06/20 16:44 Temperature Pulse Rate 99 H 94 H 98 H Respiratory Rate 12 14 16 Blood Pressure 92/59 L 81/58 L 98/66 Pulse Oximetry 98 96 100 07/06/20 16:48 07/06/20 16:50 07/06/20 17:13 Temperature Pulse Rate 98 H 98 H 104 H Respiratory Rate 14 18 Blood Pressure 94/66 Pulse Oximetry 99 100 07/06/20 17:14 07/06/20 17:15 Temperature Pulse Rate 96 H 98 H Respiratory Rate 22 18 Blood Pressure 98/60 Pulse Oximetry 98 100 MDM - Recheck/Abnormal Lab/Rx Medical Records Attestation: I reviewed the patient's medical records. Lab Data Attestation: I reviewed the patient's lab results. Result diagrams: 07/06/20 15:45 07/06/20 15:45 Labs: Lab Results 07/06/20 07/06/20 07/06/20 Range/Units 15:30 15:45 15:45 WBC 5.2 (4.5-11.0) X10^3/uL RBC 4.26 (4.0-5.2) X10^6/uL Hgb 12.8 (12.0-16.0) g/dL Hct 37.1 (36-46) % MCV 87.2 (80-100) fL MCH 30.0 (26-34) PG MCHC 34.4 (30-36) % RDW 14.7 (11.6-14.8) % Plt Count 272 (150-400) X10^3/uL Neut % (Auto) 58.7 (50-75) % Lymph % (Auto) 29.4 (25-40) % [place] % (Auto) 10.7 (3-14) % Eos % (Auto) 1.1 L (2-4) % Baso % (Auto) 0.1 (0-2) % Neut # (Auto) 3000 (1323-0647) /uL Lymph # (Auto) 1500 (9559-5418) /uL [place] # (Auto) 600 (0-900) /uL Eos # (Auto) 100 (0-450) /uL Baso # (Auto) 0 (0-100) /uL ESR (0-20) MM/HR PT 13.8 H (10.1-12.7) SECONDS INR 1.2 (0.9-1.3) APTT 27 (26.4-36.2) SECONDS Sodium (137-145) mmol/L Potassium (3.4-5.1) mmol/L Chloride (98-107) mmol/L Carbon Dioxide (22-32) mmol/L BUN (7-17) mg/dL Creatinine (0.52-1.04) mg/dL Estimated GFR (>60) mL/min BUN/Creatinine Ratio (6-22) Glucose (70-100) mg/dL Calcium (8.4-10.2) mg/dL Total Bilirubin (0.2-1.3) mg/dL AST (14-36) IU/L ALT (<35) IU/L Alkaline Phosphatase (38-126) U/L Total Creatine Kinase (30-135) U/L CK-MB (CK-2) CK-MB (CK-2) Rel Index Troponin I (0.01-0.034) ng/mL C-Reactive Protein (<1.0) mg/dL NT-Pro-B Natriuret Pep (<125) pg/mL Total Protein (6.3-8.2) g/dL Albumin (3.5-5.0) g/dL Globulin (1.7-4.1) g/dL Albumin/Globulin Ratio (1.0-2.8) Lipase (23-300) U/L Procalcitonin (<0.5) ng/mL Serum , Qual (Negative) U Opiates 300ng/mL cut (Negative) Ur Oxycodone Screen (Negative) Urine Methadone Screen (Negative) Ur Barbiturates Screen (Negative) U Tricyclic Antidepress (Negative) Ur Phencyclidine Scrn (Negative) Ur Amphetamines Screen (Negative) U Methamphetamines Scrn (Negative) Ur MDMA Scrn (Ecstasy) (Negative) U Benzodiazepines Scrn (Negative) Urine Cocaine Screen (Negative) U Marijuana (THC) Screen (Negative) COVID-19 PCR Negative (Negative) 07/06/20 07/06/20 07/06/20 Range/Units 15:45 15:45 15:45 WBC (4.5-11.0) X10^3/uL RBC (4.0-5.2) X10^6/uL Hgb (12.0-16.0) g/dL Hct (36-46) % MCV (80-100) fL MCH (26-34) PG MCHC (30-36) % RDW (11.6-14.8) % Plt Count (150-400) X10^3/uL Neut % (Auto) (50-75) % Lymph % (Auto) (25-40) % [place] % (Auto) (3-14) % Eos % (Auto) (2-4) % Baso % (Auto) (0-2) % Neut # (Auto) (9426-3753) /uL Lymph # (Auto) (3217-3098) /uL [place] # (Auto) (0-900) /uL Eos # (Auto) (0-450) /uL Baso # (Auto) (0-100) /uL ESR (0-20) MM/HR PT (10.1-12.7) SECONDS INR (0.9-1.3) APTT (26.4-36.2) SECONDS Sodium 131 L (137-145) mmol/L Potassium 2.7 L* (3.4-5.1) mmol/L Chloride 97 L (98-107) mmol/L Carbon Dioxide 29 (22-32) mmol/L BUN 12 (7-17) mg/dL Creatinine 0.92 (0.52-1.04) mg/dL Estimated GFR > 60.0 (>60) mL/min BUN/Creatinine Ratio 13.0 (6-22) Glucose 117 H (70-100) mg/dL Calcium 8.9 (8.4-10.2) mg/dL Total Bilirubin 0.7 (0.2-1.3) mg/dL AST 19 (14-36) IU/L ALT 18 (<35) IU/L Alkaline Phosphatase 49 (38-126) U/L Total Creatine Kinase 43 (30-135) U/L CK-MB (CK-2) TNP CK-MB (CK-2) Rel Index TNP Troponin I 0.072 H (0.01-0.034) ng/mL C-Reactive Protein (<1.0) mg/dL NT-Pro-B Natriuret Pep 2530 H (<125) pg/mL Total Protein 6.9 (6.3-8.2) g/dL Albumin 3.8 (3.5-5.0) g/dL Globulin 3.1 (1.7-4.1) g/dL Albumin/Globulin Ratio 1.2 (1.0-2.8) Lipase 110 (23-300) U/L Procalcitonin 0.14 (<0.5) ng/mL Serum , Qual Negative (Negative) U Opiates 300ng/mL cut (Negative) Ur Oxycodone Screen (Negative) Urine Methadone Screen (Negative) Ur Barbiturates Screen (Negative) U Tricyclic Antidepress (Negative) Ur Phencyclidine Scrn (Negative) Ur Amphetamines Screen (Negative) U Methamphetamines Scrn (Negative) Ur MDMA Scrn (Ecstasy) (Negative) U Benzodiazepines Scrn (Negative) Urine Cocaine Screen (Negative) U Marijuana (THC) Screen (Negative) COVID-19 PCR (Negative) 07/06/20 07/06/20 07/06/20 Range/Units 15:45 15:45 17:05 WBC (4.5-11.0) X10^3/uL RBC (4.0-5.2) X10^6/uL Hgb (12.0-16.0) g/dL Hct (36-46) % MCV (80-100) fL MCH (26-34) PG MCHC (30-36) % RDW (11.6-14.8) % Plt Count (150-400) X10^3/uL Neut % (Auto) (50-75) % Lymph % (Auto) (25-40) % [place] % (Auto) (3-14) % Eos % (Auto) (2-4) % Baso % (Auto) (0-2) % Neut # (Auto) (5195-0765) /uL Lymph # (Auto) (1552-0723) /uL [place] # (Auto) (0-900) /uL Eos # (Auto) (0-450) /uL Baso # (Auto) (0-100) /uL ESR 53 H (0-20) MM/HR PT (10.1-12.7) SECONDS INR (0.9-1.3) APTT (26.4-36.2) SECONDS Sodium (137-145) mmol/L Potassium (3.4-5.1) mmol/L Chloride (98-107) mmol/L Carbon Dioxide (22-32) mmol/L BUN (7-17) mg/dL Creatinine (0.52-1.04) mg/dL Estimated GFR (>60) mL/min BUN/Creatinine Ratio (6-22) Glucose (70-100) mg/dL Calcium (8.4-10.2) mg/dL Total Bilirubin (0.2-1.3) mg/dL AST (14-36) IU/L ALT (<35) IU/L Alkaline Phosphatase (38-126) U/L Total Creatine Kinase (30-135) U/L CK-MB (CK-2) CK-MB (CK-2) Rel Index Troponin I (0.01-0.034) ng/mL C-Reactive Protein 23.9 H (<1.0) mg/dL NT-Pro-B Natriuret Pep (<125) pg/mL Total Protein (6.3-8.2) g/dL Albumin (3.5-5.0) g/dL Globulin (1.7-4.1) g/dL Albumin/Globulin Ratio (1.0-2.8) Lipase (23-300) U/L Procalcitonin (<0.5) ng/mL Serum , Qual (Negative) U Opiates 300ng/mL cut Negative (Negative) Ur Oxycodone Screen Negative (Negative) Urine Methadone Screen Negative (Negative) Ur Barbiturates Screen Negative (Negative) U Tricyclic Antidepress Negative (Negative) Ur Phencyclidine Scrn Negative (Negative) Ur Amphetamines Screen Negative (Negative) U Methamphetamines Scrn Negative (Negative) Ur MDMA Scrn (Ecstasy) Negative (Negative) U Benzodiazepines Scrn Negative (Negative) Urine Cocaine Screen Negative (Negative) U Marijuana (THC) Screen Negative (Negative) COVID-19 PCR (Negative) Urine Dip Bedside Urine Glucose Negative Bedside Urine Bilirubin - Negative Bedside Urine Ketone - Negative Urine Specific [place] 1.010 Bedside Urine Occult Blood - Negative Bedside Urine pH 7.0 Bedside Urine Protein - Negative Bedside Urine Urobilinogen - Negative Bedside Urine Nitrite - Negative Bedside Urine Leukocytes - Negative Esterase Imaging Data Chest x-ray: Radiologist's Impression: [address] [address] XRay Report Signed Patient: Beatriz Mayfield R#: [id number] : 1975Acct:[id number] Age/Sex: 44 / FDate of Service: 07/06/20 Loc: LAB Accession Number: [id number] Procedure: XR chest 2V Ordering Provider: Maritza Gutiérrez PROCEDURE: XR CHEST 2V INDICATIONS: Chest pain TECHNIQUE: 2 views of the chest were acquired. COMPARISON: None. FINDINGS: Surgical changes and devices: None. Lungs and pleura: Lungs are clear. No pleural effusions or pneumothorax. Mediastinum: Mediastinal contours are normal. Heart size is normal. Bones and chest wall: No suspicious bony abnormalities. Soft tissues appear unremarkable. IMPRESSION: Normal for age, source of current chest pain symptoms is not seen. Dictated by: Abelino Mims M.D. on 07/06/2020 at 13:14 Approved by: Abelino Mims M.D. on 07/06/2020 at 13:41 CT scan - chest: Radiologist's Impression: [address] [address] [address] Scan Report Signed Patient: Beatriz Mayfield R#: [id number] : 1975Acct:[id number] Age/Sex: 44 / FDate of Service: 07/06/20 Loc: ED Accession Number: [id number] Procedure: CT angio chest PE protocol Ordering Provider: Frank Mcnair D.O. PROCEDURE: CT ANGIO CHEST PE PROTOCOL INDICATIONS: Chest pain, shortness of breath, tachycardia TECHNIQUE: After the administration of intravenous contrast, 2 mm thick sections acquired from the pulmonary apices to the posterior costophrenic angles. 3-dimensional maximum intensity projection (MIP) coronal and sagittal reformats were then acquired through the thorax. For radiation dose reduction, the following was used: automated exposure control, adjustment of mA and/or kV according to patient size. COMPARISON: None. FINDINGS: Image quality: Excellent. Pulmonary arteries: Pulmonary arteries are normal in size, and demonstrate no intraluminal filling defects to suggest central pulmonary embolism. Lungs and pleura: Lungs are clear. No pleural effusions or pneumothorax. Central and peripheral airways are patent. Mediastinum: Heart size is normal, without pericardial effusion. No mediastinal or hilar adenopathy. Thoracic aorta is normal in caliber and enhancement. Esophagus is normal in caliber, without hiatal hernia. Bones and chest wall: No suspicious bony lesions. Ribs and thoracic spine appear intact throughout. Thyroid gland is unremarkable as visualized. No axillary or supraclavicular adenopathy. Abdomen: Visualized upper abdominal solid organs appear normal in the early arterial phase of enhancement. IMPRESSION: 1. No evidence of acute pulmonary emboli. 2. No evidence of acute pulmonary process. Dictated by: Fortunato Bearden M.D. on 07/06/2020 at 17:21 Approved by: Fortunato Bearden M.D. on 07/06/2020 at 17:23 ECG Data Attestation: I personally reviewed and interpreted this ECG as follows: Prior ECG tracings: not available for review Interpretation: Sinus rhythm S1 q.3h T3 pattern Ventricular rate 95 QTC 384 millisecond MDM Narrative Medical decision making narrative: Chest x-ray included in this note is for references purposes only it was ordered from the walk-in clinic and resulted prior to patient's arrival here in the ER. Repeat of the patient's labs does show continued hypokalemia. She was replaced with both oral and IV potassium. A repeat of the troponin which is 3 hours after the initial shows continued elevation but no arise from the initial 1 drawn in the walk-in clinic. There is no ST elevations on her EKG. Her BNP is also elevated. She is not clinically in heart failure. Given the elevated troponin in the pulmonary disease pattern on her EKG in the chest pain and the elevated BNP there is some concern for pulmonary embolism. A CT scan of the chest was subsequently ordered and was negative for an acute lung pathology. Also considered other etiologies such as endocarditis or pericarditis. The patient denies any IV drug use. She is afebrile. There is no effusion noted on the CT scan. Given these findings patient does warrant admission for further workup to include echocardiogram. She was given an aspirin upon arrival. Will hold on heparin for now. Patient also has an elevated ESR and CRP. She did just complete a course of steroids for an acute inflammation in her abdomen. This information or abdomen could be the reason for elevated ESR and CRP. She also has a rash. Unsure what the etiology of this rash is from. She has no new exposures. Low suspicion for anaphylaxis. Given her multiple abnormalities on both lab and physical exam and the unclear etiology I feel that admission to the hospital is warranted. I discussed the case with Dr. Roberts who will admit the patient for further evaluation and treatment. Holding orders were placed. Discussed this with the patient. She expressed understanding and agreement. Discharge Plan Departure Patient Disposition: Admitted As Inpatient Clinical Impression: Hypokalemia, Chest pain, Rash, Elevated troponin Admit Date/Time: 07/06/20 17:55 Admit Provider: Bushra Roberts
--- NOTE | 2020-07-06 16:53 | PC.NURSE ---
1545: Reports sent from walk in clinic for abnormal labs. Recent ulcerative collitis diagnosis, finished abx coarse and prednisone. Neck stiff, diarrhea, chills, rash on neck starting saturday. Chest pain 4/10 epigastric saturday night into saturday, now resolved. Denies any chest pain currently. Neck pain/soreness 12/24. Rash on trunk from neck to chest/upper back, extending down arms. Raised and itchy.
[2020-07-06 17:22] LABS: UR Morphine/Opiate cutoff 300 Negative (Negative); Ur Creatinine Normal (Normal); Ur Specific Gravity Normal (Normal); Urine Amphetamines Negative (Negative); Urine Barbiturates Negative (Negative); Urine Benzodiazepines Negative (Negative); Urine Cocaine Negative (Negative); Urine MDMA Negative (Negative); Urine Methadone Negative (Negative); Urine Methamphetamines Negative (Negative); Urine Oxycodone Negative (Negative); Urine Phencyclidine Negative (Negative); Urine Tetrahydrocannabinol Negative (Negative); Urine Tricyclic Antidepressant Negative (Negative); Urine pH Normal (Normal)
[2020-07-06 17:36] LABS: C-Reactive Protein Quant 23.9 mg/dL (<1.0)
[2020-07-06 17:41] LABS: Erythrocyte Sedimentation Rate 53 MM/HR (0-20)
[2020-07-06] MEDS: SODIUM CHLORIDE 0.9% 1,000 ML 125 ML IV (18:02)
[2020-07-06] MEDS: methylPREDNISolone 125 MG/2 ML VIAL IV (18:02)
[2020-07-06 18:51] LABS: Magnesium 2.1 mg/dL (1.6-2.3)
--- NOTE | 2020-07-06 23:20 | PC.NURSE ---
Evening Shift Note- Patient arrived to room via stretcher from ER at 1913. Patient able to walk independently with steady gait. admit questions done, medications reviewed, physical assessment done, and skin check completed. Oriented patient to bed and bed controls, room, lights, phone, menu, bathroom, and call waddell/tv remote. Safety measures in place. patient agrees to call for assistance. call waddell and phone within reach. Will continue to ,monitor.
[2020-07-06] MEDS: CYCLOBENZAPRINE 10 MG TABLET PO (23:56)
--- NOTE | 2020-07-07 | DI.ECHO.S_ITS ---
[place] +---------+ [facility] +---------+ : : [address] : : : : [id number] : : : : Phone: [phone] Echocardiogram Report + + :Name: EMILY NEWMAN Study Date: 07/07/2020 Height: 62 in : :[facility] Weight: 154 lb: : Gender: Female BSA: 1.7 m2 : :: 1975 Age: 44 yrs BP: 94/63 mmHg: :Reason For Study: ELEVATED TOPONINS : :Ordering Physician: HOSPITALIST, : :TIMOTHY Performed By: Marylou Stewart : :Referring: JACKIE FERRER : + + Interpretation Summary Left ventricular systolic function is normal with an estimated ejection fraction of 55 to 60% with no focal wall motion abnormality. Diastolic function is likely normal with normal filling pressures. The right ventricle appears normal. Right ventricular systolic pressure is estimated at 21 mmHg with a CVP of 3 mmHg. Both atria are normal in size There is mild mitral and mild tricuspid regurgitation but no other significant valvular abnormality. The ascending aorta is at the upper limits of normal in size. Procedure: A two-dimensional transthoracic echocardiogram with color flow and Doppler was performed. The study quality was technically adequate. There is no prior echocardiogram noted for this patient. The patient was in sinus rhythm with heart rates between 76-84. bpm during the exam. Left Ventricle: The left ventricle appears normal in size, wall thickness, and systolic function without any focal wall motion abnormalities. The ejection fraction is estimated to be 55-60%. Diastolic parameters suggest probable normal left ventricular diastolic function and normal filling pressures. Right Ventricle: The right ventricle is normal in size and function. Atria: Both atria are normal in size. There is no Doppler evidence for an interatrial shunt. Mitral Valve: The mitral valve is normal in structure and function. There is mild mitral regurgitation. Aortic Valve: The aortic valve is trileaflet. The aortic valve opens well. There is no aortic valve stenosis. No aortic regurgitation is present. Tricuspid Valve: The tricuspid valve is normal in structure and function. There is mild tricuspid regurgitation. The right ventricular systolic pressure is estimated to be at least 21 mmHg based on an estimated right atrial pressure of 3 mm Hg. Pulmonic Valve: The pulmonic valve leaflets are thin and pliable; valve motion is normal. There is trace pulmonic regurgitation. There is no other significant valvular heart disease. Great Vessels: The aortic root is normal size. The ascending aorta is at the upper limits of normal in size. The IVC is of normal diameter and collapses greater than 50% with a sniff. This suggests a low right atrial pressure of 3 mm Hg. Pericardium/ Pleura There is no pericardial effusion. There is no pleural effusion. MMode/2D Measurements & Calculations LVIDd: 5.2 cm LVOT diam: 2.1 cm LVIDs: 3.5 cm Ao root diam: 3.6 cm FS: 32.1 % asc Aorta Diam: 3.4 cm EPSS: 1.0 cm Ao Arch Diam (Prox Trans): 2.6 cm IVSd: 0.78 cm LVPWd: 0.95 cm LV gunn. diameter/BSA (cm/m^2): 3.0 LV sys. diameter/BSA (cm/m^2): 2.0 LA A2 area: 16.9 cm2 RA long axis: 4.4 cm LA A4 area: 19.0 cm2 RA area: 13.3 cm2 LA length (vol): 5.4 cm RA vol: 34.2 ml LA vol: 50.7 ml RA : 20.0 ml/m2 LA vol index: 29.6 ml/m2 IVC diam: 1.6 cm RVD1 (basal): 3.9 cm TAPSE: 1.8 cm Doppler Measurements & Calculations Ao V2 max: 131.0 cm/sec LVOT Max Dennis: 95.0 cm/sec Ao V2 mean: 85.8 cm/sec LV V1 max P.6 mmHg Ao max P.9 mmHg LV V1 VTI: 17.9 cm Ao mean P.4 mmHg DEVYN(I,D): 2.2 cm2 Ao V2 VTI: 27.4 cm DEVYN(V,D): 2.4 cm2 sev ratio: 0.65 DEVYN indexed to BSA (cm^2/m^2): 1.3 MV E max dennis: 89.6 cm/sec TR max dennis: 211.2 cm/sec MV A max dennis: 68.9 cm/sec TR max P.8 mmHg MV E/A: 1.3 PA V2 max: 60.7 cm/sec Med Peak E' Dennis: 8.7 cm/sec PA V2 mean: 41.2 cm/sec E/E' med: 10.3 PA mean P.79 mmHg Lat Peak E' Dennis: 11.9 cm/sec PA pr(Accel): 37.9 mmHg E/E' lat: 7.5 E/e' average: 8.9 MV dec time: 0.16 sec SV([facility]): 59.9 ml Reading Physician:03:40 PM
[2020-07-07 00:19] VITALS: BP 94/63; PULSE 88; RESP 16; TEMP 37.1; O2SAT 97
[2020-07-07 00:19] LABS: Troponin I 0.034 ng/mL (0.01-0.034)
--- NOTE | 2020-07-07 00:27 | PM.HP.1 ---
History of Present Illness History of Present Illness Date Patient Seen: 07/07/20 Time Patient Seen: 08:05 Chief complaint: abnormal labs Narrative: 44-year-old female is admitted from the emergency department secondary to complications from bloody diarrhea. Diarrhea started after a visit to [place] in late October 2019, approximately 8 months prior to presentation. Vacation was at a self-catering lodging and she had diarrhea right away that went away after returning home. Two weeks later, it returned and has not subsided since then. She has associated bright red blood and mucus. Family history of ulcerative colitis in her mother. Had a recent colonoscopy on 06/06/2020 that showed pancolonic colitis, right greater than left, and proctitis. Biopsies showed mildly active colitis with minimally increased lymphocytes, plasma cells, and eosinophils in the lamina propria. Rectum had mild distortion of the crypt architecture. Pathologist reported that the presence of eosinophils in all pieces, slightly more prominent in the rectum, suggested chronic inflammation. There was rare branched crypt architecture of the sigmoid colon and rectum suggestive of idiopathic inflammatory bowel disease. No viral or parasitic organisms identified. Patient did have rectal bleeding post procedure and was started on prednisone taper x 1 month. She improved greatly on the prednisone and her diarrhea completely subsided. She was able to advance her diet and started exercising again, vigorously, up to 2 hours per day. Prior to that, she had no baseline fitness. Two days prior to presentation, she was so sore that she could not move and had neck pain, chest pain, and diaphoresis. On the day prior to admission when her prednisone finished, her diarrhea returned and her diaphoresis, neck pain chest pain and general feeling of illness worsened. Reports that the chest pain was worse lying on her left side and better when lying down. Drinking water also improved her chest discomfort. Pain was not worse with palpation. Was seen in urgent care where workup was significant for low potassium and an elevated troponin. She was advised to go to the emergency department. Vital signs upon admission to the emergency department included a temperature of 98.3?, pulse 105, respirations 14, blood pressure 89/58, O2 saturation 96% on room air. Lab workup significant for a low potassium at 2.7 that was repleted orally and IV as well as elevated troponin at 0.072 and an elevated BNP at 2530. ESR and CRP elevated at 53 in 23.9, respectively. Chest x-ray and CT angiogram were negative. EKG showed normal sinus rhythm with a ventricular rate of 95 beats per minute. In addition, patient also had a rash that flared up 2 days prior to admission on her face and groin. She did apply hydrocortisone cream to the rash prior to her visit to the ED and it has resolved overnight. Past medical history Diarrhea Hyperlipidemia Hypertension Hyperglycemia Gout Vitamin-D deficiency Alcohol abuse Past surgical history: Hysterectomy Family history: Mother: Ulcerative colitis, hypertension, chronic inflammatory demyelinating polyneuropathy Maternal aunt: Hypertension Maternal grandmother: Hypertension Social history: Works at the [employer]. Alcohol consumption has decreased, drinking 2-3 beers per week. Former smoker. Patient History Medical History (Updated 07/06/20 @ 17:55 by Frank Mcnair DO) Gout (Acute) Hypertension (Acute) Surgical History History of dilatation and curettage (Acute) [place] teeth removed (Acute) Family & Social History Social History: household members family Prior Living Arrangements Apartment/Condo Safety & Behavioral: Feels Safe in Current Yes Environment Been Physically Hurt or No Threatened By a Person Suicidal Ideation Description None Suicide Plan Description No Plan Tobacco & Substance use: Smoking Status Former smoker alcohol intake current alcohol intake frequency holiday/special occasion Substance Use Type does not use Meds Home Medications and Allergies Home Medications Medication Instructions Recorded Confirmed Type ibuprofen 600 mg PO PRN PRN 03/24/18 07/06/20 History hydrochlorothiazide 25 mg PO DAILY #30 tab 03/25/18 07/06/20 Rx losartan 100 mg PO DAILY 06/06/20 07/06/20 History cyclobenzaprine 10 mg tablet 10 mg PO TID PRN #14 tab 07/06/20 07/06/20 Rx Allergies Allergy/AdvReac Type Severity Reaction Status Date / Time No Known Drug Allergies Allergy Verified 07/06/20 11:22 Review of Systems Review of Systems ROS: Yes All systems reviewed with the patient and are negative except as otherwise documented Exam Vital Signs (past 8 hours): - 07/06/20 16:30 07/06/20 16:44 07/06/20 16:48 Temperature Pulse Rate 94 H 98 H 98 H Respiratory Rate 14 16 14 Blood Pressure 81/58 L 98/66 Pulse Oximetry 96 100 99 07/06/20 16:50 07/06/20 17:13 07/06/20 17:14 Temperature Pulse Rate 98 H 104 H 96 H Respiratory Rate 18 22 Blood Pressure 94/66 98/60 Pulse Oximetry 100 98 07/06/20 17:15 07/06/20 17:19 07/06/20 17:30 Temperature Pulse Rate 98 H 99 H 99 H Respiratory Rate 18 19 18 Blood Pressure 97/56 L 97/60 Pulse Oximetry 100 99 98 07/06/20 17:49 07/06/20 18:00 07/06/20 18:15 Temperature Pulse Rate 103 H 100 H 100 H Respiratory Rate 16 16 Blood Pressure Pulse Oximetry 95 99 98 07/06/20 18:30 07/06/20 18:45 07/06/20 19:00 Temperature Pulse Rate 94 H 94 H 95 H Respiratory Rate 15 17 18 Blood Pressure Pulse Oximetry 98 96 97 07/06/20 19:01 07/06/20 19:13 Temperature 97.9 F Pulse Rate 97 H 101 H Respiratory Rate 17 16 Blood Pressure 89/59 L 103/69 Pulse Oximetry 97 97 Oxygen Delivery Method Room Air Narrative Exam Narrative: GENERAL: Alert and oriented, appearing stated age and in no acute distress. HEENT: Head normocephalic/atraumatic. Pupils equal, round, and reactive to light and accomodation. Extraocular muscles intact. Tympanic membranes clear. Nasal mucosa moist, septum midline. Oral mucosa moist, no lesions. Neck soft and supple, no lymphadenopathy. LUNGS: Clear to ausculation bilaterally, no wheezes, rhonchi or rales. CV: Normal S1 and S2 with regular rate and rhythm, no audible murmurs, rubs or gallops. ABDOMEN: Soft, non-tender, non-distended, no organomegaly. Positive bowel sounds. EXTREMITIES: No clubbing, cyanosis, or edema. NEURO: Cranial nerves II through XII grossly intact, no focal deficits. PSYCH: Alert and oriented x 3. SKIN: No concerning lesions. Objective Labs Result Diagrams: 07/07/20 05:08 07/07/20 05:08 Labs: Laboratory Results - last 24 hr 07/06/20 07/06/20 07/06/20 12:45 15:30 15:45 WBC 5.2 RBC 4.26 Hgb 12.8 Hct 37.1 MCV 87.2 MCH 30.0 MCHC 34.4 RDW 14.7 Plt Count 272 Neut % (Auto) 58.7 Lymph % (Auto) 29.4 [place] % (Auto) 10.7 Eos % (Auto) 1.1 L Baso % (Auto) 0.1 Neut # (Auto) 3000 Lymph # (Auto) 1500 [place] # (Auto) 600 Eos # (Auto) 100 Baso # (Auto) 0 ESR PT INR APTT Sodium Potassium Chloride Carbon Dioxide BUN Creatinine Estimated GFR BUN/Creatinine Ratio Glucose Calcium Magnesium 2.1 Total Bilirubin AST ALT Alkaline Phosphatase Total Creatine Kinase CK-MB (CK-2) CK-MB (CK-2) Rel Index Troponin I C-Reactive Protein NT-Pro-B Natriuret Pep Total Protein Albumin Globulin Albumin/Globulin Ratio Lipase Procalcitonin Serum , Qual U Opiates 300ng/mL cut Ur Oxycodone Screen Urine Methadone Screen Ur Barbiturates Screen U Tricyclic Antidepress Ur Phencyclidine Scrn Ur Amphetamines Screen U Methamphetamines Scrn Ur MDMA Scrn (Ecstasy) U Benzodiazepines Scrn Urine Cocaine Screen U Marijuana (THC) Screen COVID-19 PCR Negative 07/06/20 07/06/20 07/06/20 15:45 15:45 15:45 WBC RBC Hgb Hct MCV MCH MCHC RDW Plt Count Neut % (Auto) Lymph % (Auto) [place] % (Auto) Eos % (Auto) Baso % (Auto) Neut # (Auto) Lymph # (Auto) [place] # (Auto) Eos # (Auto) Baso # (Auto) ESR PT 13.8 H INR 1.2 APTT 27 Sodium 131 L Potassium 2.7 L* Chloride 97 L Carbon Dioxide 29 BUN 12 Creatinine 0.92 Estimated GFR > 60.0 BUN/Creatinine Ratio 13.0 Glucose 117 H Calcium 8.9 Magnesium Total Bilirubin 0.7 AST 19 ALT 18 Alkaline Phosphatase 49 Total Creatine Kinase 43 CK-MB (CK-2) TNP CK-MB (CK-2) Rel Index TNP Troponin I 0.072 H C-Reactive Protein NT-Pro-B Natriuret Pep 2530 H Total Protein 6.9 Albumin 3.8 Globulin 3.1 Albumin/Globulin Ratio 1.2 Lipase 110 Procalcitonin 0.14 Serum , Qual U Opiates 300ng/mL cut Ur Oxycodone Screen Urine Methadone Screen Ur Barbiturates Screen U Tricyclic Antidepress Ur Phencyclidine Scrn Ur Amphetamines Screen U Methamphetamines Scrn Ur MDMA Scrn (Ecstasy) U Benzodiazepines Scrn Urine Cocaine Screen U Marijuana (THC) Screen COVID-19 PCR 07/06/20 07/06/20 07/06/20 15:45 15:45 15:45 WBC RBC Hgb Hct MCV MCH MCHC RDW Plt Count Neut % (Auto) Lymph % (Auto) [place] % (Auto) Eos % (Auto) Baso % (Auto) Neut # (Auto) Lymph # (Auto) [place] # (Auto) Eos # (Auto) Baso # (Auto) ESR 53 H PT INR APTT Sodium Potassium Chloride Carbon Dioxide BUN Creatinine Estimated GFR BUN/Creatinine Ratio Glucose Calcium Magnesium Total Bilirubin AST ALT Alkaline Phosphatase Total Creatine Kinase CK-MB (CK-2) CK-MB (CK-2) Rel Index Troponin I C-Reactive Protein 23.9 H NT-Pro-B Natriuret Pep Total Protein Albumin Globulin Albumin/Globulin Ratio Lipase Procalcitonin Serum , Qual Negative U Opiates 300ng/mL cut Ur Oxycodone Screen Urine Methadone Screen Ur Barbiturates Screen U Tricyclic Antidepress Ur Phencyclidine Scrn Ur Amphetamines Screen U Methamphetamines Scrn Ur MDMA Scrn (Ecstasy) U Benzodiazepines Scrn Urine Cocaine Screen U Marijuana (THC) Screen COVID-19 PCR 07/06/20 07/06/20 17:05 23:48 WBC RBC Hgb Hct MCV MCH MCHC RDW Plt Count Neut % (Auto) Lymph % (Auto) [place] % (Auto) Eos % (Auto) Baso % (Auto) Neut # (Auto) Lymph # (Auto) [place] # (Auto) Eos # (Auto) Baso # (Auto) ESR PT INR APTT Sodium Potassium Chloride Carbon Dioxide BUN Creatinine Estimated GFR BUN/Creatinine Ratio Glucose Calcium Magnesium Total Bilirubin AST ALT Alkaline Phosphatase Total Creatine Kinase CK-MB (CK-2) CK-MB (CK-2) Rel Index Troponin I 0.034 C-Reactive Protein NT-Pro-B Natriuret Pep Total Protein Albumin Globulin Albumin/Globulin Ratio Lipase Procalcitonin Serum , Qual U Opiates 300ng/mL cut Negative Ur Oxycodone Screen Negative Urine Methadone Screen Negative Ur Barbiturates Screen Negative U Tricyclic Antidepress Negative Ur Phencyclidine Scrn Negative Ur Amphetamines Screen Negative U Methamphetamines Scrn Negative Ur MDMA Scrn (Ecstasy) Negative U Benzodiazepines Scrn Negative Urine Cocaine Screen Negative U Marijuana (THC) Screen Negative COVID-19 PCR Assessment & Plan Assessment & Plan narrative: 1. Chest pain, rule out OR -Patient recently started a rigorous exercise program just days prior to her admission with no baseline conditioning and in the setting of acute infection with recent diarrhea times 6 months. This may have contributed to her elevated troponin/BNP, chest pain, neck pain, etc. PLAN: Serial troponins, echo, stress test. Continue telemetry and supportive therapy. Will trend labs. 2. Hypokalemia, secondary to diarrhea PLAN: Oral replacement, will trend labs. 3. Diarrhea, secondary to inflammatory bowel disease, steroid responsive PLAN: Status post IV methylprednisolone 125 mg IV x1 in the ED. Will start budesonide and pentasa. Plan for outpatient referral to GI. 4. Hyperlipidemia, diet controlled PLAN: Will update FLP. 5. Hypertension, chronic -Hypotensive in the hospital PLAN: Holding home hydrochlorothiazide and losartan. 6. Gout, currently asymptomatic PLAN: Will hold colcrys. DVT prophylaxis: SCDs GI prophylaxis: Protonix Code: Full COVID: Negative Quality VTE Deep Vein Thrombosis/Pulmonary Embolism Present on Admission: No
[2020-07-07] MEDS: KCL 20 MEQ IN NS 1,000 ML 125 MEQ IV (01:01)
[2020-07-07 04:19] VITALS: BP 92/62; PULSE 71; RESP 16; TEMP 36
--- NOTE | 2020-07-07 05:09 | PC.NURSE ---
Pt is A and O x 4, VSS. NSR on tele. LS clear. Rash on chest and neck and L FA resolved. Pt c/o R sided neck px and requested one robaxin at hs which was helpful. [facility] last BM 07/06/2020. Slept throughout most of noc shift.
[2020-07-07 05:35] LABS: Add Manual Diff / Slide Review NO; Basophils Absolute Auto 0 /uL (0-100); Eosinophils Absolute Auto 0 /uL (0-450); Eosinophils Percent Auto 0.1 % (2-4); Hematocrit 35.8 % (36-46); Lymphocytes Absolute Auto 700 /uL (1100-4500); Mean Corpuscular HGB Conc 33.5 % (30-36); Mean Corpuscular Hemoglobin 29.7 PG (26-34); Mean Corpuscular Volume 88.6 fL (80-100); Monocytes Absolute Auto 100 /uL (0-900); Monocytes Percent Auto 3.9 % (3-14); Neutrophils Absolute Auto 2900 /uL (1500-7000); Platelet Count 274 X10^3/uL (150-400); Red Blood Cell Count 4.04 X10^6/uL (4.0-5.2); Red Cell Distribution Width 15.2 % (11.6-14.8); White Blood Cell Count 3.7 X10^3/uL (4.5-11.0)
[2020-07-07 05:45] LABS: BUN Creatinine Ratio 12.3 (6-22); Blood Urea Nitrogen 7 mg/dL (7-17); Calcium 8.5 mg/dL (8.4-10.2); Carbon Dioxide 29 mmol/L (22-32); Chloride 104 mmol/L (98-107); Estimated Glomerular Filt Rate > 60.0 mL/min (>60); Glucose 146 mg/dL (70-100); HEMOLYSIS < 15 (0-50); Sodium 139 mmol/L (137-145)
[2020-07-07 05:52] LABS: NT-proBNP (BNP-Adult 18+) 1320 pg/mL (<125)
[2020-07-07 08:30] VITALS: BP 100/75; PULSE 85; RESP 16; TEMP 36.6; O2SAT 100
[2020-07-07 08:42] LABS: Troponin I < 0.012 ng/mL (0.01-0.034)
[2020-07-07] MEDS: POTASSIUM CHLORIDE 20 MEQ/15 ML UDC 40 MEQ PO (08:44)
[2020-07-07] MEDS: PANTOPRAZOLE 20 MG TABLET PO (08:44)
[2020-07-07] MEDS: CYCLOBENZAPRINE 10 MG TABLET PO (08:52)
--- NOTE | 2020-07-07 09:51 | PC.NURSE ---
Patient void amount is from 2 times
[2020-07-07 10:15] LABS: C-Reactive Protein Quant 25.7 mg/dL (<1.0)
[2020-07-07] MEDS: MESALAMINE 250 MG CAPSULE.ER 1000 MG PO ×2 (14:03→18:53)
[2020-07-07] MEDS: BUDESONIDE 3 MG CAP 9 MG PO (14:03)
[2020-07-07] MEDS: HYDROCODONE/ACET 5/325 TABLET 1 TAB PO ×2 (14:10→21:40)
--- NOTE | 2020-07-07 14:49 | CM.DANOTE ---
Addendum entered by Claritza Clemons LPN 07/07/20 15:00: Checked in with pt as planned. She was found sitting up in bed, appeared comfortable. Introduced self and role. Pt confirmed that she does live by by herself in [place] but her son RANGEL and her mother Pham [place]: [phone] live in the area and are supportive. She clarfies that some of her symptoms that were different started before the prednisone taper was completed. She said she needs to stay for the 2nd part of the stress test, planned now for tomorrow and is hopeful that she will then be ok for home. Will check in tomorrow. Original Note: Discharge Planning/Care Management DCP: assessment: case received, EMR reviewed. Pt is a 44 year old female who admitted to care of her PCP: Dr. Roberts last evening. Payer: [employer] Management Per documentation pt had colonoscopy 06/06 with resulting dx of pancolonic colitis and proctitis. She was on a month long prednisone taper which ended the day before her admission here. She was seen by the Urgent Care clinic and later in the day she was called and advised to report urgently to the ER. Will plan to check in with pt to continue the assessment process and follow prn as POC unfolds. CM Discharge Assessment Start: 07/07/20 14:47 Freq: Status: Active Protocol: Document 07/07/20 14:47 ITV (Rec: 07/07/20 14:49 ITV [id number]) Discharge Planning Assessment Advance Directives? No History Provided By Medical Record Prior Living Arrangements Apartment/Condo Household Members family Independent with ADL's Yes Is patient alert and oriented? Yes Review Status In Process
[2020-07-07 15:51] VITALS: BP 102/76; PULSE 81; RESP 16; TEMP 36.4; O2SAT 100
[2020-07-07] MEDS: SODIUM CHLORIDE 0.9% FLUSH 10 ML IV (18:54)
[2020-07-07 20:37] VITALS: BP 101/71; PULSE 71; RESP 17; TEMP 36.3; O2SAT 97
[2020-07-07] MEDS: MORPHINE 2 MG/ML INJ IV (23:38)
[2020-07-07 23:39] VITALS: BP 94/66; PULSE 80; RESP 18; TEMP 36.7; O2SAT 98
--- NOTE | 2020-07-07 23:58 | PC.NURSE ---
Addendum entered by Elizabeth Crowe R.N. 07/08/20 05:25: Informed by ICU the patient's heart rate increased to the 120s. Checked on patient whom was shivering. Temperature checked, currently febrile at 102.8. Tylenol administered. Will inform oncoming nurse and coordinator. Addendum entered by Elizabeth Crowe R.N. 07/08/20 03:16: 0315 Chest/neck pain remains around 6/10 on pain scale. Bolus of LR had been administered, vitals rechecked and remain stable. Telemetry showing Normal Sinus Rhythm. Will continue to monitor patient. Addendum entered by Elizabeth Crowe R.N. 07/08/20 00:40: 1240 BMP and Troponin have resulted. Troponin has increased slightly, potassium is within normal range. However, her BP at 2330 was low and her BMP showed an elevated BUN/Creatinine Ratio. Dr. Roberts informed and verbal orders 1 liter of LR. Order placed. Original Note: 2140 Pt c/o right sided neck/shoulder pain, 7/10 on pain scale. Administered hydrocodone PO per order. 2330 Pt c/o chest pain in addition to right sided neck/shoulder pain 8/10 on pain scale. STAT ECG ordered; results are Sinus Rhythm. Previous telemetry readings have been Normal Sinus Rhythm. Administered 2mg/mL morphine IV. [address] Roberts who gives verbal order to request STAT BMP and Troponin levels as well as gives the following protocol: If the potassium level results under range, place an order and administer 40mEq IV potassium with same mL/H rate as previous ED order.
[2020-07-08] VITALS (14 sets, daily range): BP systolic 91–127; BP diastolic 69–92; PULSE 79–127; RESP 16; TEMP 36.9–39.5; O2SAT 94–97
--- NOTE | 2020-07-08 | DI.CT.S_ITS ---
PROCEDURE: CT ABDOMEN PELVIS WO CON INDICATIONS: h/o diarrhea x 6 mo, temp spike, inpatient, r/o infection TECHNIQUE: Noncontrast 5 mm thick sections acquired from the diaphragms to the symphysis. 5 mm coronal and sagittal reformats were then performed. For radiation dose reduction, the following was used: automated exposure control, adjustment of mA and/or kV according to patient size. COMPARISON: None. FINDINGS: Image quality: Limited by absence of both oral and intravenous contrast. ABDOMEN: Lung bases: Lung bases are clear. Heart size is normal. Solid organs: Liver is normal in size. Gallbladder appears free of calcified gallstones. There is a layering of slightly increased radiodensity within the posterior 3rd of the gallbladder lumen, which can indicate presence of sludge or noncalcified stones within.. Pancreas is normal in contours. Spleen is normal in size. No adrenal nodules. Kidneys are normal in size, without hydronephrosis or nephrolithiasis. Peritoneum and bowel: Unenhanced bowel loops demonstrate normal wall thickness and caliber. No free fluid or air. Nodes and vessels: No retroperitoneal or mesenteric adenopathy by size criteria. Aorta and inferior vena cava are normal in caliber. Miscellaneous: No ventral hernias. PELVIS: Genitourinary: Bladder wall thickness is normal. Miscellaneous: No inguinal hernias or adenopathy. There is a slight amount of free fluid deep within the cul-de-sac. Bones: No suspicious bony lesions. No vertebral body compression fractures. IMPRESSION: 1. No urinary tract stone found. The absence of both oral and intravenous contrast reduces quality of visualization. 2. A slight amount of free fluid is seen deep within the cul-de-sac, but this could represent evidence of a recently ruptured ovarian cyst. 3. As noted there is a slightly higher degree of radiodensity within the posterior 3rd of the gallbladder lumen, potentially evidence of sludge or radiolucent gallstones. 4. The clinical history indicates concern for fever and infection. Depending on the clinical status follow-up by gallbladder ultrasound may be warranted. Also, contrast enhancement generally is considered warranted if there is ongoing assessment for underlying infection, including colitis. Dictated by: Abelino Mims M.D. on 07/08/2020 at 8:30 Approved by: Abelino Mims M.D. on 07/08/2020 at 8:39
[2020-07-08 00:17] LABS: BUN Creatinine Ratio 24.2 (6-22); Blood Urea Nitrogen 15 mg/dL (7-17); Calcium 8.6 mg/dL (8.4-10.2); Carbon Dioxide 30 mmol/L (22-32); Chloride 108 mmol/L (98-107); Estimated Glomerular Filt Rate > 60.0 mL/min (>60); Glucose 127 mg/dL (70-100); HEMOLYSIS < 15 (0-50); Potassium 3.5 mmol/L (3.4-5.1); Sodium 139 mmol/L (137-145)
[2020-07-08 00:29] LABS: Troponin I 0.022 ng/mL (0.01-0.034)
[2020-07-08] MEDS: LACTATED RINGERS 1,000 ML 1000 ML IV (01:11)
[2020-07-08] MEDS: HYDROCODONE/ACET 5/325 TABLET 1 TAB PO ×2 (01:12→07:01)
[2020-07-08] MEDS: MORPHINE 2 MG/ML INJ IV ×3 (03:14→12:00)
[2020-07-08] MEDS: ACETAMINOPHEN 325 MG TABLET 650 MG PO ×2 (05:20→11:15)
[2020-07-08] MEDS: PANTOPRAZOLE 20 MG TABLET PO (05:21)
[2020-07-08 05:46] LABS: Add Manual Diff / Slide Review NO; BUN Creatinine Ratio 18.8 (6-22); Basophils Absolute Auto 0 /uL (0-100); Basophils Percent Auto 0.1 % (0-2); Blood Urea Nitrogen 13 mg/dL (7-17); Calcium 8.7 mg/dL (8.4-10.2); Carbon Dioxide 30 mmol/L (22-32); Chloride 106 mmol/L (98-107); Eosinophils Absolute Auto 0 /uL (0-450); Eosinophils Percent Auto 1.2 % (2-4); Estimated Glomerular Filt Rate > 60.0 mL/min (>60); Glucose 98 mg/dL (70-100); HEMOLYSIS < 15 (0-50); Hematocrit 31.4 % (36-46); Hemoglobin 10.5 g/dL (12.0-16.0); Lymphocytes Absolute Auto 1000 /uL (1100-4500); Lymphocytes Percent Auto 23.9 % (25-40); Mean Corpuscular HGB Conc 33.4 % (30-36); Mean Corpuscular Hemoglobin 29.7 PG (26-34); Mean Corpuscular Volume 88.9 fL (80-100); Monocytes Absolute Auto 400 /uL (0-900); Monocytes Percent Auto 9.8 % (3-14); Neutrophils Absolute Auto 2600 /uL (1500-7000); Platelet Count 254 X10^3/uL (150-400); Potassium 3.5 mmol/L (3.4-5.1); Red Blood Cell Count 3.53 X10^6/uL (4.0-5.2); Red Cell Distribution Width 14.9 % (11.6-14.8); Sodium 140 mmol/L (137-145)
[2020-07-08 05:51] LABS: NT-proBNP (BNP-Adult 18+) 3560 pg/mL (<125)
--- NOTE | 2020-07-08 06:34 | P.PN_ITS ---
Subjective Subjective Date Patient Seen: 07/08/20 Time Patient Seen: 06:34 Interval history: Was called by nursing several times overnight. First complaint was for chest and neck pain. Patient was given hydrocodone and morphine and labs drawn. Troponin was normal at 0.022 but slightly elevated from last draw at < 0.012. EKG and telemetry showed normal sinus rhythm with no acute ST changes. 1 L of LR administered due to possible concern for dehydration. Potassium was notably normal. Early this morning patient spiked a temperature of 102.8 that only came down to 102 with tylenol. Blood and urinne cultures have been drawn and prophylactic levofloxacin and gentamycin started. Awaiting lactic acid and CT scan to check possible GI source of infection. 10:02: Lactic acid 2.2 at 06:55 --> 1.5 at 09:29. Troponinin trending up to 0.160 at 06:55. Patient reports that she continues to have chest and neck pain, worse with exertion and breathing. Describes the pain as between her breasts, sharp and stabbing. She received morphine, hydrocodone, and ice overnight which did help the pain. She continues to have bloody diarrhea. Appetite is poor with associated nausea. No vomiting. CT scan completed and results pending. Antibiotics have been started, temperature is now normal. Blood pressure is now normal after fluid resuscitation. She has only been ambulating up to the bathroom. Discussed case with Dr. Mead, on-call for cardiology. He recommended transfer to [facility] for higher level of support and possible catheterization. Exam Vital Signs (past 8 hours): - 07/07/20 23:39 07/08/20 03:12 07/08/20 05:20 Temperature 98.1 F 102.8 F H Pulse Rate 80 79 Respiratory Rate 18 16 Blood Pressure 94/66 91/69 Pulse Oximetry 98 94 07/08/20 06:01 Temperature 102.0 F H Pulse Rate Respiratory Rate Blood Pressure Pulse Oximetry Oxygen Delivery Method Room Air Oxygen Flow Rate 0 Narrative Exam Narrative: GENERAL: Alert and oriented, appearing stated age and in pain, mild. No diaphoresis. HEENT: Head normocephalic/atraumatic. Pupils equal, round, and reactive to light and accomodation. Extraocular muscles intact. Tympanic membranes clear. Nasal mucosa moist, septum midline. Oral mucosa moist, no lesions. Neck soft and supple, no lymphadenopathy. LUNGS: Clear to ausculation bilaterally, no wheezes, rhonchi or rales. CV: Normal S1 and S2 with regular rate and rhythm, no audible murmurs, rubs or gallops. ABDOMEN: Soft, non-tender, non-distended, no organomegaly. Hypoactive bowel sounds. EXTREMITIES: No clubbing, cyanosis, or edema. NEURO: Cranial nerves II through XII grossly intact, no focal deficits. PSYCH: Alert and oriented x 3. SKIN: No concerning lesions. Objective Labs Result Diagrams: 07/08/20 05:04 07/08/20 05:04 Labs: Laboratory Results - last 24 hr 07/07/20 07/07/20 07/07/20 05:08 08:06 23:58 WBC RBC Hgb Hct MCV MCH MCHC RDW Plt Count Neut % (Auto) Lymph % (Auto) [place] % (Auto) Eos % (Auto) Baso % (Auto) Neut # (Auto) Lymph # (Auto) [place] # (Auto) Eos # (Auto) Baso # (Auto) Sodium 139 Potassium 3.5 Chloride 108 H Carbon Dioxide 30 BUN 15 Creatinine 0.62 Estimated GFR > 60.0 BUN/Creatinine Ratio 24.2 H Glucose 127 H Calcium 8.6 Troponin I < 0.012 0.022 C-Reactive Protein 25.7 H NT-Pro-B Natriuret Pep 07/08/20 07/08/20 05:04 05:04 WBC 4.0 L RBC 3.53 L Hgb 10.5 L Hct 31.4 L MCV 88.9 MCH 29.7 MCHC 33.4 RDW 14.9 H Plt Count 254 Neut % (Auto) 65.0 Lymph % (Auto) 23.9 L [place] % (Auto) 9.8 Eos % (Auto) 1.2 L Baso % (Auto) 0.1 Neut # (Auto) 2600 Lymph # (Auto) 1000 L [place] # (Auto) 400 Eos # (Auto) 0 Baso # (Auto) 0 Sodium 140 Potassium 3.5 Chloride 106 Carbon Dioxide 30 BUN 13 Creatinine 0.69 Estimated GFR > 60.0 BUN/Creatinine Ratio 18.8 Glucose 98 Calcium 8.7 Troponin I C-Reactive Protein NT-Pro-B Natriuret Pep 3560 H Assessment & Plan Assessment & Plan narrative: 1. Chest pain, rule out NC, risk for NSTEMI -Patient recently started a rigorous exercise program just days prior to her admission with no baseline conditioning and in the setting of acute infection with recent diarrhea times 6 months. This may have contributed to her elevated troponin/BNP, chest pain, neck pain, etc. -Serial troponins (first set) trended down (0.072 --> 0.034 --> <0.012) now running second set in setting of new chest pain (0.022 --> 0.160), risk for NSTEMI -Echo yesterday showed EF of 55-60% with no significant abnormalities -Stress test unable to be run yesterday secondary to hypokalemia and elevated troponin. PLAN: Case discussed with Dr. Mead, [facility], he re commended transfer to higher level of care for further monitoring and possible catheterization, will arrange expediently. In the meantime, will administer nitroglycerin, morphine, and continue to watch closely. 2. Fever of unknown source, new -Blood/urine cultures pending. -Lactic acid 2.2 --> 1.5 -Bilirubin: 0.3 -CT abdomen/pelvis pending to look for GI source in setting of chronic diarrhea -In setting of hypotension and pain, risk for sepsis; although not currently meeting criteria. PLAN: Continue prophylactic levofloxacin and gentamicin. IV fluids. Will trend labs and watch closely. 3. Hypokalemia, secondary to diarrhea, resolved. PLAN: Will trend labs and replete as needed. 4. Diarrhea, secondary to inflammatory bowel disease, steroid responsive -Status post IV methylprednisolone 125 mg IV x1 in the ED. PLAN: Will continued budesonide and pentasa. Plan for outpatient referral to GI. 5. Acute dehydration, likely secondary to chronic diarrhea and intensive exercise program -24 hour I/O: 1690/3100 PLAN: Continue IVF. 6. Elevated BNP, suspect this is cardiac in nature as CXR and echo are clear. No clinical signs of heart failure and patient is tolerating fluid boluses well with excellent urine output. No sign of kidney failure. -2530 -->1320 --> 3560 PLAN: Please see #1. 7. Hyperlipidemia, diet controlled PLAN: Awaiting FLP. 8. Hypertension, chronic -Hypotensive in the hospital PLAN: Holding home hydrochlorothiazide and losartan and replacing fluids. 9. Gout, currently asymptomatic PLAN: Will hold colcrys. DVT prophylaxis: SCDs GI prophylaxis: Protonix Code: Full COVID: Negative Quality VTE Deep Vein Thrombosis/Pulmonary Embolism Present on Admission: No
[2020-07-08 07:37] LABS: Alanine Aminotransferase 42 IU/L (<35); Albumin 2.9 g/dL (3.5-5.0); Albumin Globulin Ratio 1.2 (1.0-2.8); Alkaline Phosphatase 59 U/L (38-126); Aspartate Aminotransferase 40 IU/L (14-36); Bilirubin Total 0.3 mg/dL (0.2-1.3); Bilirubin Unconjugated 0.2 mg/dL (0.0-1.1); Globulin 2.4 g/dL (1.7-4.1); HEMOLYSIS < 15 (0-50); Lactate (Lactic Acid) 2.2 mmol/L (0.7-2.1); Total Protein 5.3 g/dL (6.3-8.2)
[2020-07-08] MEDS: LACTATED RINGERS 1,000 ML 150 ML IV (07:57)
[2020-07-08] MEDS: levoFLOXacin 750 MG/150 ML PIGGYBACK 100 MG IV (07:57)
[2020-07-08 09:08] LABS: Reflexed Lactate in 2 Hours Y
--- NOTE | 2020-07-08 09:15 | PC.NURSE ---
Addendum entered by Fiorella Horan R.N. 07/08/20 14:06: 1300: Report given to Justina receiving nurse at [facility]. Report given to transport team on arrival. Patient awake, alert, and with no C/O chest pain. Continue on RA, 98%. Tachycardia at 122. Normotensive. Transfer packet re checked. Patient transferred to [place] for higher level of care, via [facility]. Mother Pham called and updated regarding clinical status and disposition. Addendum entered by Fiorella Horan R.N. 07/08/20 10:36: 0958 Substernal chest pain 7/10 sharp, worse with activity. Nitroglycerin admin SL, Dr. Roberts aware, normotensive. Chest pain 6/10, Morphine IV admin, pain decrease to 4/10. No SOB or dizziness. Patient states pain in decreasing. BP 127/80 HR 125. EKG performed at bedside, sinus Tachycardia. Continue NPO Original Note: Day shift note: Patient awake, alert, and pleasant. Up OOb to BR, C/O chest pain 4/10 described as sharp to substernal region, no SOB, or dizziness. 0800 IVF and IV ABX initiated. At rest patient denies pain or chest discomfort, BP 125/88, HR 119, 97% on RA, 98.4 Afebrile. Patient off floor to CT, no c/o chest pain when OOB or activity. Notified Dr. Bolanos regarding critical value TROP 0.160 and clinical status. Calls appropriately for staff assist.
[2020-07-08 09:50] LABS: Lactate 2HR (Lactic Acid Rflx) 1.5 mmol/L (0.7-2.1)
[2020-07-08] MEDS: NITROGLYCERIN 0.4 MG SL TAB SL (09:57)
[2020-07-08] MEDS: metroNIDAZOLE 500 MG/100 ML PIGGYBACK 100 MG IV (10:17)
--- NOTE | 2020-07-08 10:30 | CM.DPC ---
Addendum entered by Claritza Clemons LPN 07/08/20 12:36: Pt now accepted at [facility] in [place] and will be picked up in about 20 minutes, per VERNON Barros. Addendum entered by Claritza Clemons LPN 07/08/20 10:46: RN coordinator Cassandra reports that she is assisting Dr. Roberts in the transfer process and that they are now also looking at other hospitals in the area as the need for this transfer is urgent. Original Note: DCP: continued: Dr. Roberts is here now and working on a transfer for pt to [facility] for higher level of cardiac care as per recommendation from parts runner Dr. Mead. P: now transfer, as per above.
--- NOTE | 2020-07-08 10:31 | PM.DS.1 ---
History of Present Illness History of Present Illness Date Patient Seen: 07/08/20 Time Patient Seen: 10:32 Chief complaint: abnormal labs Narrative: 44-year-old female is admitted from the emergency department secondary to complications from bloody diarrhea. Diarrhea started after a visit to [place] in late October 2019, approximately 8 months prior to presentation. Vacation was at a self-catering lodging and she had diarrhea right away that went away after returning home. Two weeks later, it returned and has not subsided since then. She has associated bright red blood and mucus. Family history of ulcerative colitis in her mother. Had a recent colonoscopy on 06/06/2020 that showed pancolonic colitis, right greater than left, and proctitis. Biopsies showed mildly active colitis with minimally increased lymphocytes, plasma cells, and eosinophils in the lamina propria. Rectum had mild distortion of the crypt architecture. Pathologist reported that the presence of eosinophils in all pieces, slightly more prominent in the rectum, suggested chronic inflammation. There was rare branched crypt architecture of the sigmoid colon and rectum suggestive of idiopathic inflammatory bowel disease. No viral or parasitic organisms identified. Patient did have rectal bleeding post procedure and was started on prednisone taper x 1 month. She improved greatly on the prednisone and her diarrhea completely subsided. She was able to advance her diet and started exercising again, vigorously, up to 2 hours per day. Prior to that, she had no baseline fitness. Two days prior to presentation, she was so sore that she could not move and had neck pain, chest pain, and diaphoresis. On the day prior to admission when her prednisone finished, her diarrhea returned and her diaphoresis, neck pain chest pain and general feeling of illness worsened. Reports that the chest pain was worse lying on her left side and better when lying down. Drinking water also improved her chest discomfort. Pain was not worse with palpation. Was seen in urgent care where workup was significant for low potassium and an elevated troponin. She was advised to go to the emergency department. Vital signs upon admission to the emergency department included a temperature of 98.3?, pulse 105, respirations 14, blood pressure 89/58, O2 saturation 96% on room air. Lab workup significant for a low potassium at 2.7 that was repleted orally and IV as well as elevated troponin at 0.072 and an elevated BNP at 2530. ESR and CRP elevated at 53 in 23.9, respectively. Chest x-ray and CT angiogram were negative. EKG showed normal sinus rhythm with a ventricular rate of 95 beats per minute. In addition, patient also had a rash that flared up 2 days prior to admission on her face and groin. She did apply hydrocortisone cream to the rash prior to her visit to the ED and it has resolved overnight. Past medical history Diarrhea Hyperlipidemia Hypertension Hyperglycemia Gout Vitamin-D deficiency Alcohol abuse Past surgical history: Hysterectomy Family history: Mother: Ulcerative colitis, hypertension, chronic inflammatory demyelinating polyneuropathy Maternal aunt: Hypertension Maternal grandmother: Hypertension Social history: Works at the [employer]. Alcohol consumption has decreased, drinking 2-3 beers per week. Former smoker. Discharge Providers Provider Date of admission: 07/06/20 17:55 Discharge Date: 07/08/20 Primary care physician: Bushra Roberts MD Consults: 07/06/20 17:56 Consult to Physician Urgent Comment: Consulting Provider: Bushra Roberts Reason for consultation: Admission Has provider been notified: Yes 07/07/20 00:22 Consult to Discharge Planning Routine Comment: Discharge provider: Bushra Roberts MD Summary Hospital Course Discharge Diagnosis: 1. Chest pain, rule out NM, risk for non-STEMI 2. Fever of unknown source, new 3. Hypokalemia, secondary to diarrhea, resolved. 4. Diarrhea, secondary to inflammatory bowel disease, steroid responsive 5. Acute dehydration, likely secondary to chronic diarrhea and intensive exercise program 6. Elevated BNP 7. Hyperlipidemia, diet controlled 8. Hypertension, chronic 9. Gout, chronic. Hospital Course: Patient was admitted for rule out NM. Initial troponins trended down. On patient's 2nd hospital night, she experienced chest pain and neck pain that was worse with inspiration and movement but also occurred at rest, sharp and stabbing, 5/10. Acute EKG showed normal sinus rhythm with no ST changes. She was administered morphine, hydrocodone, ice to affected area, and fluid bolus and she did report some clinical improvement. Stat troponin was 0.022 to and has now risen to 0.160 on recheck at 06:55. She continues to have chest pain that is substernal, sharp, and stabbing, 4/10. She is not diaphoretic. Denies dyspnea at rest. Echo yesterday revealed an ejection fraction of 55-60% with no other significant abnormalities. She was unable to complete her stress test yesterday secondary to her low potassium and elevated troponins. Potassium is low in the setting of chronic diarrhea, 2.7 upon admission, now 3.5 after repletion. Other notable events during her admission was a temperature that spiked last night to 102.7 F. She was administered Tylenol with reduction to only 102 F. blood cultures and urine cultures have been drawn and are pending. She has been started on prophylactic levofloxacin and metronidazole as well as IV fluids. CT abdomen/pelvis is pending. Her vital signs at 10:05 am include a temperature of 98.4?, pulse 118, respirations 16, blood pressure 125/80, O2 saturation 97% on room air. Temperature now has again spiked, 103.1 F. Case discussed with on-call superintendent operations division, Dr. Mead, he recommended transfer for higher level of care and possible catheterization. Patient [facility] be [facility] to [facility] under the care of Dr. Watters, hospitalist. Greater than 103 minutes from 10:00 a.m. to 11:43 a.m. was spent [id number] with greater than 50% of the time directed towards stabilizing patient during critical care transport. Status at Discharge Cognitive/behavioral status at discharge: at baseline, oriented Functional status at discharge: independent ambulation Exam Vital Signs (past 8 hours): - 07/08/20 03:12 07/08/20 05:20 07/08/20 06:01 Temperature 102.8 F H 102.0 F H Pulse Rate 79 Respiratory Rate 16 Blood Pressure 91/69 Pulse Oximetry 94 07/08/20 07:27 07/08/20 08:29 07/08/20 08:30 Temperature 98.4 F Pulse Rate 119 H 117 H Respiratory Rate 16 Blood Pressure 125/88 Pulse Oximetry 97 07/08/20 09:57 Temperature Pulse Rate 127 H Respiratory Rate Blood Pressure 119/92 H Pulse Oximetry Oxygen Delivery Method Room Air Oxygen Flow Rate 0 Narrative Exam Narrative: GENERAL: Alert and oriented, appearing stated age and in pain, mild. No diaphoresis. HEENT: Head normocephalic/atraumatic. Pupils equal, round, and reactive to light and accomodation. Extraocular muscles intact. Tympanic membranes clear. Nasal mucosa moist, septum midline. Oral mucosa moist, no lesions. Neck soft and supple, no lymphadenopathy. LUNGS: Clear to ausculation bilaterally, no wheezes, rhonchi or rales. CV: Normal S1 and S2 with regular rate and rhythm, no audible murmurs, rubs or gallops. ABDOMEN: Soft, non-tender, non-distended, no organomegaly. Hypoactive bowel sounds. EXTREMITIES: No clubbing, cyanosis, or edema. NEURO: Cranial nerves II through XII grossly intact, no focal deficits. PSYCH: Alert and oriented x 3. SKIN: No concerning lesions. Objective Labs Result Diagrams: 07/08/20 05:04 07/08/20 05:04 Labs: Laboratory Results - last 24 hr 07/07/20 07/08/20 07/08/20 23:58 05:04 05:04 WBC 4.0 L RBC 3.53 L Hgb 10.5 L Hct 31.4 L MCV 88.9 MCH 29.7 MCHC 33.4 RDW 14.9 H Plt Count 254 Neut % (Auto) 65.0 Lymph % (Auto) 23.9 L Stevens % (Auto) 9.8 Eos % (Auto) 1.2 L Baso % (Auto) 0.1 Neut # (Auto) 2600 Lymph # (Auto) 1000 L Stevens # (Auto) 400 Eos # (Auto) 0 Baso # (Auto) 0 Sodium 139 140 Potassium 3.5 3.5 Chloride 108 H 106 Carbon Dioxide 30 30 BUN 15 13 Creatinine 0.62 0.69 Estimated GFR > 60.0 > 60.0 BUN/Creatinine Ratio 24.2 H 18.8 Glucose 127 H 98 Lactate Calcium 8.6 8.7 Total Bilirubin Conjugated Bilirubin Unconjugated Bilirubin AST ALT Alkaline Phosphatase Troponin I 0.022 NT-Pro-B Natriuret Pep 3560 H Total Protein Albumin Globulin Albumin/Globulin Ratio 07/08/20 07/08/20 07/08/20 06:55 06:55 06:55 WBC RBC Hgb Hct MCV MCH MCHC RDW Plt Count Neut % (Auto) Lymph % (Auto) Stevens % (Auto) Eos % (Auto) Baso % (Auto) Neut # (Auto) Lymph # (Auto) Stevens # (Auto) Eos # (Auto) Baso # (Auto) Sodium Potassium Chloride Carbon Dioxide BUN Creatinine Estimated GFR BUN/Creatinine Ratio Glucose Lactate 2.2 H Calcium Total Bilirubin 0.3 Conjugated Bilirubin 0.0 Unconjugated Bilirubin 0.2 AST 40 H ALT 42 H Alkaline Phosphatase 59 Troponin I 0.160 H* NT-Pro-B Natriuret Pep Total Protein 5.3 L Albumin 2.9 L Globulin 2.4 Albumin/Globulin Ratio 1.2 07/08/20 09:29 WBC RBC Hgb Hct MCV MCH MCHC RDW Plt Count Neut % (Auto) Lymph % (Auto) Stevens % (Auto) Eos % (Auto) Baso % (Auto) Neut # (Auto) Lymph # (Auto) Stevens # (Auto) Eos # (Auto) Baso # (Auto) Sodium Potassium Chloride Carbon Dioxide BUN Creatinine Estimated GFR BUN/Creatinine Ratio Glucose Lactate 1.5 Calcium Total Bilirubin Conjugated Bilirubin Unconjugated Bilirubin AST ALT Alkaline Phosphatase Troponin I NT-Pro-B Natriuret Pep Total Protein Albumin Globulin Albumin/Globulin Ratio Discharge Plan Discharge Plan Patient Disposition: [facility] Other facility: [facility] Under care of provider: Dr. Pepito Watters Discharge orders & Medications Follow up/Referrals: Bushra Roberts MD [Primary Care Provider] - Discharge Health Status Precautions: Outing Diet/Activity/Treatments Diet: Nothing by Mouth Activity: bedrest Discharge Data Primary Care Provider: Bushra Roberts Quality VTE Deep Vein Thrombosis/Pulmonary Embolism Present on Admission: No
[2020-07-08] MEDS: MORPHINE 2 MG/ML INJ 1 MG IV (12:01)
== END 2020-07-08 13:00 | disposition short-term general hospital (02) | DRG 281 ==
LOC: ED 17:01 → AC 17:56
PROVIDERS: Admitting Provider Student in an Organized Health Care Education/Training Program; Emergency Provider Emergency Medicine; PCP Student in an Organized Health Care Education/Training Program; Referring Provider Emergency Medicine; Visit Provider Student in an Organized Health Care Education/Training Program
DX: I21.4 Non-ST elevation (NSTEMI) myocardial infarction (principal); K51.90 Ulcerative colitis, unspecified, without complications; E87.6 Hypokalemia; R50.9 Fever, unspecified; E86.0 Dehydration; I10 Essential (primary) hypertension; R73.9 Hyperglycemia, unspecified; E78.5 Hyperlipidemia, unspecified; M10.9 Gout, unspecified; Z87.891 Personal history of nicotine dependence
CPT/HCPCS: 36415; 36592; 71275; 74176; 80048; 80053; 80076; 80305; 81003; 82550; 83605; 83690; 83735; 83880; 84145; 84484; 84703; 85025; 85610; 85651; 85730; 86140; 87040; 87086; 87635; 93005; 93010; 93306; 96365; 96366; 96375; 99285; J1956; J2270; J2930; J3480